=== PATIENT | female | born 1985 | race African-American/Black ===

== ENCOUNTER 2016-10-13 17:51 | Emergency (ER) | payer OTHER ==
[~2016-10-13] VITALS: Ht 170.2 cm; Wt 125.6 kg
[~2016-10-13 17:51] MED LIST: ACET-704 PO; CYCL10TA2 PO; HYDR-971 PO; METH-37 PO; METH4TAB2 PO; NAPR500T8 PO; ONDA4TAB7 PO; TRIA1CAP13 PO
[2016-10-13 18:06] VITALS: BP 178/97
[2016-10-13] MEDS ORDERED: HYDR-971 PO (18:18)
--- NOTE | 2016-10-13 18:18 | PHYS DOC ---
Past Medical History Past Medical History: Hypertension, Other Additional Past Medical Histor: Hemorrhoids,NEUROPATHY,CHRONIC LEFT FOOT PAIN, CRPS Past Surgical History: Tubal ligation Additional Information: quit smoking 2 months ago Alcohol Use: None Drug Use: None Adult General Chief Complaint Chief Complaint: LOWER EXT PAIN [facility] HPI Patient is a 31 year old female with history of hypertension who presents with pain to her left side due to chronic regional pain syndrome. Patient states she normally follows up with her PCP and has an appointment with the doctor on Wednesday next week. She states she ran out of her pain medicines. She states the whether also has changed from warm to cold and this has triggered her pain. She states she has an appointment with the pain clinic in 6 months for her first visit. She has blankets wrapped on her left lower extremity. She states this keeps her warm. She states any time cold hits her leg she develops more pain. PCP Dr. Amber Jon Review of Systems Review of Systems Constitutional: Denies fever or chills [] Eyes: Denies change in visual acuity, redness, or eye pain [] HENT: Denies nasal congestion or sore throat [] Respiratory: Denies cough or shortness of breath [] Cardiovascular: No additional information not addressed in HPI [] GI: Denies abdominal pain, nausea, vomiting, bloody stools or diarrhea [] : Denies dysuria or hematuria [] Musculoskeletal: Left sided pain Integument: Denies rash or skin lesions [] Neurologic: Denies headache, focal weakness or sensory changes [] Endocrine: Denies polyuria or polydipsia [] Current Medications Current Medications Current Medications Medications (Trade) Dose Ordered Sig/[facility] Start Time Stop Time Status Last Admin Dose Admin Dexamethasone Sodium Phosphate (Decadron) 10 mg 1X ONCE 10/13/16 19:00 10/13/16 19:01 Morphine Sulfate 5 mg 1X ONCE 10/13/16 19:00 10/13/16 19:01 Allergies Allergies Allergies Coded Allergies Type Severity Reaction Last Updated Verified No Known Drug Allergies 09/28/13 No Physical Exam Physical Exam Constitutional: Well developed, well nourished, no acute distress, non-toxic appearance. [] HENT: Normocephalic, atraumatic, bilateral external ears normal, oropharynx moist, no oral exudates, nose normal. [] Eyes: PERRLA, EOMI, conjunctiva normal, no discharge. [] Neck: Normal range of motion, no tenderness, supple, no stridor. [] Cardiovascular:Heart rate regular rhythm, no murmur [] Lungs & Thorax: Bilateral breath sounds clear to auscultation [] Abdomen: Bowel sounds normal, soft, no tenderness, no masses, no pulsatile masses. [] Skin: Warm, dry, no erythema, no rash. [] Back: No tenderness, no CVA tenderness. [] Extremities: No tenderness, no cyanosis, no clubbing, ROM intact, no edema. [] Neurologic: Alert and oriented X 3, normal motor function, normal sensory function, no focal deficits noted. [] Psychologic: Affect normal, judgement normal, mood normal. [] Current Patient Data Vital Signs Vital Signs Date Time Temp Pulse Resp B/P Pulse Ox O2 Delivery O2 Flow Rate FiO2 10/13/16 18:06 98.5 100 16 97 Room Air 98.5 EKG EKG [] Radiology/Procedures Radiology/Procedures [] Course & Med Decision Making Course & Med Decision Making Pertinent Labs and Imaging studies reviewed. (See chart for details) Patient is in the ED with chronic regional pain syndrome. We provided her pain clinic for follow-up. We gave her pain management in the ED. She promised to see her doctor on Wednesday as scheduled. Drake Disclaimer Drake Disclaimer This electronic medical record was generated, in whole or in part, using a voice recognition dictation system. Departure Departure Impression: Primary Impression: Chronic pain Disposition: HOME, SELF-CARE Condition: STABLE Referrals: COLE JON MD (PCP) HA FORTUNE MD follow up with your doctor or the pain clinic as soon as possible Patient Instructions: Chronic Back Pain Additional Instructions: Please follow up with your doctor as soon as possible. Make an appointment with the pain clinic as soon as possible for follow up Scripts Hydrocodone/Apap 5-325 ([place] 5-325 Tablet)1 Each Tablet1 Tab PO Q6-8HRS PRN PAIN #16 TAB Prov:FATIMAHOPAL RENO BRIDGET 10/13/16 Problem Qualifiers Primary Impression: Chronic pain Chronic pain type: chronic pain syndrome Qualified Code: G89.4 - Chronic pain syndrome FATIMAHOPAL RENO BRIDGET October 13, 2016 18:18
[2016-10-13] MEDS ORDERED: MORPHINE SULFATE 10 MG/ML VIAL. IM ONE (19:00)
[2016-10-13] MEDS ORDERED: DEXAMETHASONE SOD PHOS 20 MG/5 ML VIAL. IM ONE (19:00)
[2016-10-14] MEDS ORDERED: NAPR500T PO (17:10)
[2016-10-14] MEDS ORDERED: ONDA4TAB10 SL (17:10)
== END 2016-10-13 18:30 | disposition home or self-care (01) ==
LOC: ER 17:51
DX: G89.4 Chronic pain syndrome (principal); I10 Essential (primary) hypertension; G62.9 Polyneuropathy, unspecified; G90.50 Complex regional pain syndrome I, unspecified; Z87.891 Personal history of nicotine dependence
CPT/HCPCS: 96372; 99284; J1100; J2270

== ENCOUNTER 2016-10-14 16:38 | Emergency (ER) | payer OTHER ==
[~2016-10-14] VITALS: Ht 170.2 cm; Wt 125.6 kg
[2016-10-14 16:49] VITALS: BP 173/112
[2016-10-14] MEDS ORDERED: ONDA4TAB10 SL (17:10)
[2016-10-14] MEDS ORDERED: NAPR500T PO (17:10)
[2016-10-14] MEDS ORDERED: KETOROLAC TROMETHAMINE 60 MG/2 ML INJ. IM ONE (17:15)
[2016-10-14] MEDS ORDERED: ONDANSETRON ODT 4 MG TAB.RAPDIS. PO ONE (17:15)
--- NOTE | 2016-10-14 17:31 | PHYS DOC ---
Past Medical History Past Medical History: Hypertension, Other Additional Past Medical Histor: Hemorrhoids,NEUROPATHY,CHRONIC LEFT FOOT PAIN, CRPS Past Surgical History: Tubal ligation Alcohol Use: None Drug Use: None Adult General Chief Complaint Chief Complaint: HEADACHE HPI HPI Patient is a pleasant 31-year-old -[place] female with considerable chronic history of lower back pain, left foot pain, chronic headaches, who presents with the same chronic complaints as she was seen here yesterday for. She has no new complaints today is just worried she can't get over the pain despite being on oral narcotics. This pain has been going on since 2014 she's currently on Cymbalta as well as oral narcotics to treat her pain she has a primary care follow-up visit every 30 days to treat her like symptoms. There is no new trauma her headache is described as throbbing and achy typical for patient with not sudden in onset or worst of life. She denies any new focal neurologic deficits, denies any change in vision denies normal speech. Patient' s foot pain is exact same she was just looking for some narcotics to treat. She admits she last took hydrocodone 6 hours prior to arrival with minimal improvement. She was on tramadol and Tylenol at home but now has been graduated to hydrocodone and has run out of her medications. We discussed at length her usage she's been screened for peripheral circulatory problems as well as gout in the past Review of Systems Review of Systems Constitutional: Denies fever or chills [] Eyes: Denies change in visual acuity, redness, or eye pain [] HENT: Denies nasal congestion or sore throat [] Respiratory: Denies cough or shortness of breath [] Cardiovascular: No additional information not addressed in HPI [] GI: Denies abdominal pain, nausea, vomiting, bloody stools or diarrhea [] : Denies dysuria or hematuria [] Musculoskeletal: Complains of chronic back pain chronic left ankle and foot pain. Integument: Denies rash or skin lesions [] Neurologic: She complains of chronic headache chronic neck pain Endocrine: Denies polyuria or polydipsia [] Family History Family History Noncontributory Current Medications Current Medications Current Medications Medications (Trade) Dose Ordered Sig/[facility] Start Time Stop Time Status Last Admin Dose Admin Ketorolac Tromethamine (Toradol Im) 60 mg 1X ONCE 10/14/16 17:15 10/14/16 17:16 DC 10/14/16 17:06 60 MG Ondansetron HCl (Zofran Odt) 4 mg 1X ONCE 10/14/16 17:15 10/14/16 17:16 DC 10/14/16 17:06 4 MG Allergies Allergies Allergies Coded Allergies Type Severity Reaction Last Updated Verified No Known Drug Allergies 09/28/13 No Physical Exam Physical Exam Constitutional: Well developed, well nourished, patient obviously uncomfortable nondiaphoretic limiting no signs of withdrawal. [] HENT: Normocephalic, atraumatic, bilateral external ears normal, oropharynx moist, no oral exudates, nose normal. [] Eyes: PERRLA, EOMI, conjunctiva normal, no discharge. [] Neck: Normal range of motion, no tenderness, supple, no stridor. [] Cardiovascular: Noted tachycardia no murmurs, rub Lungs & Thorax: Bilateral breath sounds clear to auscultation [] Abdomen: Bowel sounds normal, soft, no tenderness, no masses, no pulsatile masses. [] Skin: Warm, dry, no erythema, no rash. [] Back: No tenderness, no CVA tenderness. 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 Neurologic: Alert and oriented X 3, normal motor function, normal sensory function, no focal deficits noted. [] Psychologic: Affect normal, judgement normal, mood normal. [] Current Patient Data Vital Signs Vital Signs Date Time Temp Pulse Resp B/P Pulse Ox O2 Delivery O2 Flow Rate FiO2 10/14/16 16:49 98.9 119 20 173/112 97 Room Air 98.9 EKG EKG [] Radiology/Procedures Radiology/Procedures [] Course & Med Decision Making Course & Med Decision Making Pertinent Labs and Imaging studies reviewed. (See chart for details) [Patient with chronic head and neck pain chronic back pain chronic ankle pain with nothing new today patient admits she has run out of her narcotic medications for acute treatment. Given that there is nothing new about history we talked about long-term narcotic use and about his dependence on such. Patient will be given Toradol Zofran to help with her symptoms prescribed anti- inflammatories for long-term usage. She is referred back to her primary care doctor for referral to a addiction clinic or possibly some occipital clinic to help her with her long-term opiate use. At this point time patient is not likely to have intracranial hemorrhage or meningitis.] Drake Disclaimer Dragon Disclaimer This electronic medical record was generated, in whole or in part, using a voice recognition dictation system. Departure Departure Impression: Primary Impression: Chronic pain Additional Impression: Chronic foot pain Disposition: HOME, SELF-CARE Condition: STABLE Referrals: OBINNA JON MD (PCP) Patient Instructions: Chronic Pain Management, Chronic Pain Additional Instructions: These follow-up with her primary care doctor for referral for opiate addiction clinic for use of Suboxone may help you improve your long-term satisfaction with pain management. Please return for any new or increasing symptoms. Please return for any question she might have. Please note that this facility may not refill your chronic narcotic medications. I suggest you plan ahead work with your primary care doctor to have a plan in the CHANCE she run medications. Scripts Naproxen (Naprosyn)500 Mg Tablet1 Tab PO BID #14 TAB Ref 2 Prov:MICHELA NICOLE MD 10/14/16 Ondansetron (Zofran Odt)4 Mg Tab.rapdis1 Tab SL Q8HRS #10 TAB Prov:MICHELA NICOLE MD 10/14/16 Problem Qualifiers MICHELA NICOLE MD October 14, 2016 17:31
== END 2016-10-14 17:21 | disposition home or self-care (01) ==
LOC: ER 16:38
DX: G89.29 Other chronic pain (principal); M79.672 Pain in left foot; M54.5 Low back pain; M54.2 Cervicalgia; R51 Headache; I10 Essential (primary) hypertension; Z98.51 Tubal ligation status
CPT/HCPCS: 96372; 99283; J1885; Q0162

== ENCOUNTER 2016-10-20 23:28 | Emergency (ER) | payer OTHER ==
[~2016-10-20] VITALS: Ht 175.3 cm; Wt 125.6 kg
[~2016-10-20 23:28] MED LIST changes: +NAPR500T PO; +ONDA4TAB10 SL
[2016-10-21 00:48] LABS: BASO % 0 % (0-3); EOS % 2 % (0-3); HEMATOCRIT 42.5 % (36.0-47.0); HEMOGLOBIN 14.7 g/dL (12.0-15.5); LYMPH # 3.5 x10^3/uL (1.0-4.8); LYMPH % 25 % (24-48); MEAN CORPUSCULAR HEMOGLOBIN 29 pg (25-35); MEAN CORPUSCULAR HGB CONC 35 g/dL (31-37); MEAN CORPUSCULAR VOLUME 84 fL (79-100); MONO % 8 % (0-9); NEUT % 65 % (31-73); PLATELET COUNT 479 x10^3/uL (140-400); RED BLOOD COUNT 5.05 x10^6/uL (3.50-5.40); WHITE BLOOD COUNT 13.9 x10^3/uL (4.0-11.0)
[2016-10-21 01:01] LABS: CREATININE 1.6 mg/dL (0.6-1.0); GFR 45.5; POTASSIUM 3.9 mmol/L (3.5-5.1)
[2016-10-21 01:07] LABS: ALBUMIN 3.8 g/dL (3.4-5.0); ALBUMIN/GLOBULIN RATIO 0.9 (1.0-1.7); TOTAL BILIRUBIN 0.5 mg/dL (0.2-1.0); TOTAL PROTEIN 8.2 g/dL (6.4-8.2)
[2016-10-21 01:27] LABS: BILIRUBIN,URINE SMALL (NEG); GLUCOSE,URINE NEGATIVE (NEG); NITRITE,URINE NEGATIVE (NEG); PH,URINE 5.5; PROTEIN,URINE >=300 mg/dL (NEG-TRACE)
[2016-10-21] MEDS ORDERED: ONDANSETRON PF 4 MG/2 ML VIAL. IV ONE (01:30)
[2016-10-21] MEDS ORDERED: KETOROLAC 15 MG/ML VIAL. IV ONE (01:30)
[2016-10-21] MEDS ORDERED: IV NORMAL SALINE 1000ML BAG 1,000 ML IV ONE (01:30)
[2016-10-21 01:34] LABS: BACTERIA,URINE FEW /HPF (0-FEW); RBC,URINE 0 /HPF (0-2); SQUAMOUS EPITHELIAL CELL,UR MOD /LPF
[2016-10-21] MEDS ORDERED: ONDA4TAB10 SL (04:31)
--- NOTE | 2016-10-21 04:31 | PHYS DOC ---
Past Medical History Past Medical History: Hypertension, Other Additional Past Medical Histor: Hemorrhoids,NEUROPATHY,CHRONIC LEFT FOOT PAIN, CRPS Past Surgical History: Tubal ligation Alcohol Use: None Drug Use: None Adult General Chief Complaint Chief Complaint: HYPERTENSION HPI HPI Patient is a 31 year old female who presents here today complaining of high blood pressure, headache, nausea vomiting and diarrhea. Patient has a history of hypertension. Patient denies any coronary artery disease, diabetes, CHF, COPD , liver longer kidney problems. Patient reports she smokes. No alcohol or drugs. Patient reports her last drink was around dinnertime tonight when she had wine with her [employer] sandwich. Patient is status post a bilateral tubal ligation and gets a double shot as well secondary to bad cramping. She denies any fevers shakes chills. Patient has a dysuria frequency or urgency. Patient reports her last menstrual period was in early August. Patient reports she's had about 10 loose bowel movements in the last 24 hours. She complains of abdominal cramping. Patient has any nuchal rigidity. Patient has any photophobia. Patient's physical exam the ER was significant for a benign abdominal exam. Patient's abdomen was soft nondistended no rebound or guarding. Patient present with any signs or symptoms of be consistent with acute surgical abdomen. Patient 's HEENT exam was unremarkable. Patient had no nuchal rigidity. No photophobia. No Kernig sign or Brudzinski sign. Patient appears with any signs or symptoms that would be be consistent with her concerning for meningitis. Patient's pupils are equally round and reactive to light. Extraocular motions were intact. Patient did not have any papilledema. Patient's oropharynx is clear. Patient was afebrile. Patient was tachycardic upon presentation appeared dry. Patient have dry mucous membranes. Patient's ER course was significant for tachycardia upon arrival. Patient's heart rate was approximately 110 to 1:15. Patient was afebrile with a temperature of 99.2 that was checked multiple times by myself in the ED. Patient 's labs were all within normal limits. Patient was given Dilaudid, Zofran, Toradol, IV fluids in the ER and she feels 100% improved. Patient reports that she feels very to go home at this time. #1 headache likely secondary to dehydration. Patient is doing well at this time. Patient reports her headache is significantly improved and reports that it only hurts at this time when she touches her scalp but otherwise she has no pain in her head. #2. Nausea vomiting diarrhea. Patient appears dehydrated. Patient patient reports multiple episodes of diarrhea today. Patient reports she did eat a [employer] sandwich and had some wine with dinner. Likely viral illness. Patient is doing well. Patient feels much improved after the IV fluids. Review of Systems Review of Systems Constitutional: Denies fever or chills [] Eyes: Denies change in visual acuity, redness, or eye pain [] HENT: Denies nasal congestion or sore throat [] All other review systems are negative except as documented in history of present illness portion. Current Medications Current Medications Current Medications Medications (Trade) Dose Ordered Sig/[facility] Start Time Stop Time Status Last Admin Dose Admin Ketorolac Tromethamine (Toradol) 30 mg 1X ONCE 10/21/16 01:30 10/21/16 01:31 DC 10/21/16 01:41 30 MG Ondansetron HCl (Zofran) 4 mg 1X ONCE 10/21/16 01:30 10/21/16 01:31 DC 10/21/16 01:41 4 MG Sodium Chloride 1,000 ml @ 1,000 mls/hr 1X ONCE 10/21/16 01:30 10/21/16 02:29 DC 10/21/16 01:46 1,000 MLS/HR Allergies Allergies Allergies Coded Allergies Type Severity Reaction Last Updated Verified No Known Drug Allergies 09/28/13 No Physical Exam Physical Exam Constitutional: Well developed, well nourished, no acute distress, non-toxic appearance. [] HENT: Normocephalic, atraumatic, bilateral external ears normal, oropharynx moist, no oral exudates, nose normal. [] Eyes: PERRLA, EOMI, conjunctiva normal, no discharge. [] Neck: Normal range of motion, no tenderness, supple, no stridor. [] Cardiovascular:Heart rate regular rhythm, no murmur [] Lungs & Thorax: Bilateral breath sounds clear to auscultation [] Abdomen: Bowel sounds normal, soft, no tenderness, no masses, no pulsatile masses. [] Skin: Warm, dry, no erythema, no rash. [] Back: No tenderness, no CVA tenderness. [] Extremities: No tenderness, no cyanosis, no clubbing, ROM intact, no edema. [] Neurologic: Alert and oriented X 3, normal motor function, normal sensory function, no focal deficits noted. [] Psychologic: Affect normal, judgement normal, mood normal. [] Current Patient Data Vital Signs Vital Signs Date Time Temp Pulse Resp B/P (MAP) Pulse Ox O2 Delivery O2 Flow Rate FiO2 10/20/16 23:37 113 18 108/63 (78) 97 Room Air Lab Values Laboratory Tests Test 10/20/16 00:38 10/21/16 00:38 White Blood Count 13.9 x10^3/uL (4.0-11.0) H Red Blood Count 5.05 x10^6/uL (3.50-5.40) Hemoglobin 14.7 g/dL (12.0-15.5) Hematocrit 42.5 % (36.0-47.0) Mean Corpuscular Volume 84 fL (79-100) Mean Corpuscular Hemoglobin 29 pg (25-35) Mean Corpuscular Hemoglobin Concent 35 g/dL (31-37) Red Cell Distribution Width 15.0 % (11.5-14.5) H Platelet Count 479 x10^3/uL (140-400) H Neutrophils (%) (Auto) 65 % (31-73) Lymphocytes (%) (Auto) 25 % (24-48) Monocytes (%) (Auto) 8 % (0-9) Eosinophils (%) (Auto) 2 % (0-3) Basophils (%) (Auto) 0 % (0-3) Neutrophils # (Auto) 9.0 x10^3uL (1.8-7.7) H Lymphocytes # (Auto) 3.5 x10^3/uL (1.0-4.8) Monocytes # (Auto) 1.0 x10^3/uL (0.0-1.1) Eosinophils # (Auto) 0.3 x10^3/uL (0.0-0.7) Basophils # (Auto) 0.0 x10^3/uL (0.0-0.2) Sodium Level 137 mmol/L (136-145) Potassium Level 3.9 mmol/L (3.5-5.1) Chloride Level 100 mmol/L (98-107) Carbon Dioxide Level 26 mmol/L (21-32) Anion Gap 11 (6-14) Blood Urea Nitrogen 16 mg/dL (7-20) Creatinine 1.6 mg/dL (0.6-1.0) H Estimated GFR (Cockcroft-Gault) 45.5 BUN/Creatinine Ratio 10 (6-20) Glucose Level 153 mg/dL (70-99) H Calcium Level 10.0 mg/dL (8.5-10.1) Total Bilirubin 0.5 mg/dL (0.2-1.0) Aspartate Amino Transferase (AST) 93 U/L (15-37) H Alanine Aminotransferase (ALT) 63 U/L (14-59) H Alkaline Phosphatase 59 U/L (46-116) Troponin I Quantitative < 0.017 ng/mL (0.000-0.055) Total Protein 8.2 g/dL (6.4-8.2) Albumin 3.8 g/dL (3.4-5.0) Albumin/Globulin Ratio 0.9 (1.0-1.7) L Urine Collection Type Unknown Urine Color Trice Urine Clarity Turbid Urine pH 5.5 Urine Specific [place] 1.020 Urine Protein >=300 mg/dL (NEG-TRACE) Urine Glucose (UA) Negative mg/dL (NEG) Urine Ketones (Stick) Trace mg/dL (NEG) Urine Blood Negative (NEG) Urine Nitrite Negative (NEG) Urine Bilirubin Small (NEG) Urine Urobilinogen Dipstick 1.0 mg/dL (0.2 mg/dL) Urine Leukocyte Esterase Trace (NEG) Urine RBC 0 /HPF (0-2) Urine WBC 1-4 /HPF (0-4) Urine Squamous Epithelial Cells Mod /LPF Urine Amorphous Sediment Present /HPF Urine Bacteria Few /HPF (0-FEW) Urine Granular Casts Occasional /HPF Urine Mucus Marked /LPF Laboratory Tests 10/20/16 00:38 Laboratory Tests 10/20/16 00:38 EKG EKG [] Radiology/Procedures Radiology/Procedures [] Course & Med Decision Making Course & Med Decision Making Pertinent Labs and Imaging studies reviewed. (See chart for details) [] Dragon Disclaimer Dragon Disclaimer This electronic medical record was generated, in whole or in part, using a voice recognition dictation system. Departure Departure Impression: Primary Impression: Nausea vomiting and diarrhea Additional Impressions: Dehydration Headache Viral illness Disposition: HOME, SELF-CARE Condition: IMPROVED Referrals: OBINNA JON MD (PCP) Patient Instructions: Dehydration, Adult, Diarrhea, Nausea and Vomiting Scripts Ondansetron (ZOFRAN ODT) 4 Mg Tab.rapdis 1 TAB SL Q6HRS Y for NAUSEA, #12 TAB Prov: SHERMAN FINK MD 10/21/16 Problem Qualifiers SHERMAN FINK MD October 21, 2016 04:31
[2016-10-21 05:06] VITALS: BP 113/60
--- NOTE | 2016-10-21 07:51 | EKG ---
[facility] [address] [place] [address] Test Date: 2016-10-21 Test Time: 00:37:00 Pat Name: YOLANDA CARVAJAL Department: Room: Gender: F [employer]: : 1985 Requested By: SHERMAN FINK Order Number: [id number] Reading MD: Rigo Quinonez Measurements Intervals [place] Rate: 114 P: 67 NE: 120 QRS: 70 QRSD: 74 T: -22 QT: 322 QTc: 447 Interpretive Statements SINUS TACHYCARDIA Electronically Signed On 10-26-2016 9:14:45 CDT by Rigo Quinonez
== END 2016-10-21 05:07 | disposition home or self-care (01) ==
LOC: ER 23:28
DX: R11.2 Nausea with vomiting, unspecified (principal); R19.7 Diarrhea, unspecified; E86.0 Dehydration; R51 Headache; B34.9 Viral infection, unspecified; R10.9 Unspecified abdominal pain; R00.0 Tachycardia, unspecified; G62.9 Polyneuropathy, unspecified; I10 Essential (primary) hypertension; G89.29 Other chronic pain; G90.50 Complex regional pain syndrome I, unspecified; Z98.51 Tubal ligation status
CPT/HCPCS: 36415; 80053; 81001; 84484; 85027; 87086; 93005; 96361; 96374; 96375; 99285; J1885; J2405; J7030

== ENCOUNTER 2017-04-11 11:19 | Emergency (ER) | payer OTHER ==
[2017-04-11 12:16] VITALS: BP 138/82
[2017-04-11] MEDS ORDERED: DEXAMETHASONE SOD PHOS 4 MG/ML VIAL IM ONE (12:30)
[2017-04-11] MEDS ORDERED: ONDANSETRON ODT 4 MG TAB.RAPDIS. PO ONE (12:30)
[2017-04-11] MEDS ORDERED: KETOROLAC 60 MG/2 ML INJ. IM ONE (12:30)
--- NOTE | 2017-04-11 12:32 | PHYS DOC ---
Past Medical History Past Medical History: Hypertension, Other Additional Past Medical Histor: Hemorrhoids,NEUROPATHY,CHRONIC LEFT FOOT PAIN, CRPS Past Surgical History: Tubal ligation Alcohol Use: None Drug Use: None Adult General Chief Complaint Chief Complaint: PAIN CONTROL HPI HPI Patient is a 31 year old female with a history of CRPS presents to the ED complaining of left foot pain x 1 day. States same chronic pain as previous exacerbations. States she took hydrocodone at home. Requesting anti- inflammatory shot that she has taken in the past which helped. Describes the pain as sharp. Rates the pain as 8 out of 10. She denies any new focal neurologic deficits, denies any change in vision, denies abnormal speech. Review of Systems Review of Systems Constitutional: Denies fever or chills [] Eyes: Denies change in visual acuity, redness, or eye pain [] HENT: Denies nasal congestion or sore throat [] Respiratory: Denies cough or shortness of breath [] Cardiovascular: No additional information not addressed in HPI [] GI: Denies abdominal pain, nausea, vomiting, bloody stools or diarrhea [] : Denies dysuria or hematuria [] Musculoskeletal: Denies back pain. Complains of left leg and ankle pain. [] Integument: Denies rash or skin lesions [] Neurologic: Denies headache, focal weakness or sensory changes [] Endocrine: Denies polyuria or polydipsia [] Current Medications Current Medications Current Medications Medications (Trade) Dose Ordered Sig/[facility] Start Time Stop Time Status Last Admin Dose Admin Dexamethasone Sodium Phosphate (Decadron) 10 mg 1X ONCE 04/11/17 12:30 04/11/17 12:31 DC 04/11/17 12:43 10 MG Ketorolac Tromethamine (Toradol Im) 60 mg 1X ONCE 04/11/17 12:30 04/11/17 12:31 DC 04/11/17 12:43 60 MG Ondansetron HCl (Zofran Odt) 4 mg 1X ONCE 04/11/17 12:30 04/11/17 12:31 DC 04/11/17 12:42 4 MG Allergies Allergies Allergies Coded Allergies Type Severity Reaction Last Updated Verified No Known Drug Allergies 09/28/13 No Physical Exam Physical Exam Constitutional: Well developed, well nourished, no acute distress, non-toxic appearance. [] HENT: Normocephalic, atraumatic, bilateral external ears normal, oropharynx moist, no oral exudates, nose normal. [] Eyes: PERRLA, EOMI, conjunctiva normal, no discharge. [] Neck: Normal range of motion, no tenderness, supple, no stridor. [] Cardiovascular:Heart rate regular rhythm, no murmur [] Lungs & Thorax: Bilateral breath sounds clear to auscultation [] Abdomen: Bowel sounds normal, soft, no tenderness, no masses, no pulsatile masses. [] Skin: Warm, dry, no erythema or rash. [] Back: No tenderness, no CVA tenderness. [] Extremities: NO TENDERNESS OR REPRODUCIBLE PAIN. NV INTACT., no cyanosis, no clubbing, ROM intact, no edema. [] Neurologic: Alert and oriented X 3, normal motor function, normal sensory function, no focal deficits noted. [] Psychologic: Affect normal, judgement normal, mood normal. [] Current Patient Data Vital Signs Vital Signs Date Time Temp Pulse Resp B/P (MAP) Pulse Ox O2 Delivery O2 Flow Rate FiO2 04/11/17 12:16 98.0 98 16 98 Room Air 98.0 EKG EKG [] Radiology/Procedures Radiology/Procedures [] Course & Med Decision Making Course & Med Decision Making Pertinent Labs and Imaging studies reviewed. (See chart for details) []No bony tenderness or injury. No x-ray warranted. Patient given Toradol and Decadron in ED. Patient's pain improved. Vital stable, no acute distress. Discussed follow-up with specialist and chronic pain early this week. Discussed reasons to return to the ED. Patient understands and agrees with plan. Family at bedside. Dragon Disclaimer Dragon Disclaimer This electronic medical record was generated, in whole or in part, using a voice recognition dictation system. Departure Departure Impression: Primary Impression: Chronic pain Disposition: 01 HOME, SELF-CARE Condition: IMPROVED Referrals: OBINNA JON MD (PCP) Patient Instructions: Chronic Pain, Chronic Pain Management ROSARIO BERNAL Apr 11, 2017 12:32
== END 2017-04-11 12:54 | disposition home or self-care (01) ==
LOC: ER 11:19
DX: G89.29 Other chronic pain (principal); M25.572 Pain in left ankle and joints of left foot; I10 Essential (primary) hypertension; G62.9 Polyneuropathy, unspecified
CPT/HCPCS: 96372; 99284; J1100; J1885; Q0162

== ENCOUNTER 2017-07-16 15:42 | Emergency (ER) | payer OTHER ==
[2017-07-16 16:53] LABS: URINE HCG POC HCG NEGATIVE (Negative)
[2017-07-16 16:54] LABS: BILIRUBIN,URINE SMALL (NEG); CLARITY,URINE CLEAR; COLOR,URINE AMBER; GLUCOSE,URINE NEGATIVE (NEG); NITRITE,URINE NEGATIVE (NEG); PROTEIN,URINE 100 mg/dL (NEG-TRACE)
[2017-07-16 17:01] LABS: ADD MAN DIFF? NO
[2017-07-16] MEDS: IV NORMAL SALINE 1000ML BAG 1,000 ML IV ×2 (17:01)
[2017-07-16] MEDS: PANTOPRAZOLE IV PUSH 40 MG VIAL. IVP ×2 (17:02)
[2017-07-16] MEDS: ONDANSETRON PF 4 MG/2 ML VIAL. IV ×2 (17:02)
[2017-07-16] MEDS: LIDO:MAALOX:DONNATAL 1:1:1 15 ML SINGLE DOSE SWSW ×2 (17:02)
[2017-07-16] MEDS: fentaNYL PF VIAL 100 MCG/2 ML VIAL IV ×2 (17:02)
[2017-07-16 17:07] LABS: BASO # 0.1 x10^3/uL (0.0-0.2); BASO % 1 % (0-3); EOS # 0.4 x10^3/uL (0.0-0.7); EOS % 4 % (0-3); HEMATOCRIT 43.2 % (36.0-47.0); HEMOGLOBIN 14.6 g/dL (12.0-15.5); LYMPH # 4.5 x10^3/uL (1.0-4.8); LYMPH % 42 % (24-48); MEAN CORPUSCULAR HEMOGLOBIN 30 pg (25-35); MEAN CORPUSCULAR HGB CONC 34 g/dL (31-37); MEAN CORPUSCULAR VOLUME 90 fL (79-100); MONO # 0.8 x10^3/uL (0.0-1.1); MONO % 8 % (0-9); NEUT # 4.9 x10^3uL (1.8-7.7); NEUT % 46 % (31-73); PLATELET COUNT 434 x10^3/uL (140-400); RED BLOOD COUNT 4.79 x10^6/uL (3.50-5.40); RED CELL DISTRIBUTION WIDTH 13.6 % (11.5-14.5); WHITE BLOOD COUNT 10.6 x10^3/uL (4.0-11.0)
[2017-07-16] MEDS ORDERED: CONTRAST GIVEN MC ×2 (17:15)
[2017-07-16 17:26] LABS: BACTERIA,URINE 0 /HPF (0-FEW); RBC,URINE 0 /HPF (0-2); SQUAMOUS EPITHELIAL CELL,UR MOD /LPF; WBC,URINE OCC /HPF (0-4)
[2017-07-16 17:33] LABS: ANION GAP 8 (6-14); BLOOD UREA NITROGEN 10 mg/dL (7-20); BUN/CREATININE RATIO 14 (6-20); CARBON DIOXIDE 31 mmol/L (21-32); CHLORIDE 99 mmol/L (98-107); CREATININE 0.7 mg/dL (0.6-1.0); GFR 117.3; GLUCOSE 103 mg/dL (70-99); SODIUM 138 mmol/L (136-145)
[2017-07-16 17:40] LABS: ALBUMIN 3.8 g/dL (3.4-5.0); ALBUMIN/GLOBULIN RATIO 0.9 (1.0-1.7); ALK PHOS 90 U/L (46-116); ALT (SGPT) 130 U/L (14-59); AST (SGOT) 184 U/L (15-37); LIPASE 124 U/L (73-393); MAGNESIUM 1.9 mg/dL (1.8-2.4); TOTAL BILIRUBIN 0.5 mg/dL (0.2-1.0); TOTAL PROTEIN 8.1 g/dL (6.4-8.2)
[2017-07-16] MEDS: IOHEXOL 300 MG/ML 100ML VIAL. IV ×2 (19:39)
[2017-07-16] MEDS: HYDROmorphone 2 MG/ML VIAL IV ×2 (19:49)
[2017-07-16] MEDS: oxyCODONE/APAP 5/325 1 TAB TABLET PO ×2 (20:20)
[2017-07-16] MEDS: FAMOTIDINE 20 MG TABLET. PO ×2 (20:22)
== END 2017-07-16 20:39 | disposition home or self-care (01) ==
LOC: ER 15:42
DX: R10.10 Upper abdominal pain, unspecified (principal); R74.0 Nonspecific elevation of levels of transaminase and lactic acid dehydrogenase [LDH]; I10 Essential (primary) hypertension; G62.9 Polyneuropathy, unspecified; F12.10 Cannabis abuse, uncomplicated; F17.200 Nicotine dependence, unspecified, uncomplicated; Z98.51 Tubal ligation status
CPT/HCPCS: 36415; 74177; 80053; 81001; 81025; 83690; 83735; 85025; 96361; 96374; 96375; 99285-25; C9113; J1170; J2405; J3010; J7030; Q9967

== ENCOUNTER 2017-07-20 09:30 | Inpatient (IN) | payer OTHER ==
[2017-07-20 10:01] LABS: URINE HCG POC HCG NEGATIVE (Negative)
[2017-07-20 10:10] LABS: BILIRUBIN,URINE NEGATIVE (NEG); CLARITY,URINE CLEAR; COLOR,URINE YELLOW; GLUCOSE,URINE NEGATIVE (NEG); NITRITE,URINE NEGATIVE (NEG); PROTEIN,URINE 100 mg/dL (NEG-TRACE); UROBILINOGEN,URINE 0.2 mg/dL (0.2 mg/dL)
[2017-07-20 10:23] LABS: BACTERIA,URINE MANY /HPF (0-FEW); SQUAMOUS EPITHELIAL CELL,UR MANY /LPF
[2017-07-20 10:24] LABS: RBC,URINE OCC /HPF (0-2)
[2017-07-20 10:28] LABS: ADD MAN DIFF? NO
[2017-07-20 10:31] LABS: BARBITURATES NEG (NEG); BASO # 0.1 x10^3/uL (0.0-0.2); BASO % 1 % (0-3); BENZODIAZEPINES NEG (NEG); CANNABINOIDS POS (NEG); COCAINE NEG (NEG); EOS # 0.3 x10^3/uL (0.0-0.7); EOS % 3 % (0-3); HEMATOCRIT 45.8 % (36.0-47.0); HEMOGLOBIN 15.3 g/dL (12.0-15.5); LYMPH # 3.3 x10^3/uL (1.0-4.8); LYMPH % 27 % (24-48); MEAN CORPUSCULAR HEMOGLOBIN 30 pg (25-35); MEAN CORPUSCULAR HGB CONC 34 g/dL (31-37); MEAN CORPUSCULAR VOLUME 89 fL (79-100); METHADONE NEG (NEG); MONO # 0.9 x10^3/uL (0.0-1.1); MONO % 7 % (0-9); NEUT # 7.7 x10^3uL (1.8-7.7); NEUT % 63 % (31-73); OPIATES POS (NEG); PHENCYCLIDINE NEG (NEG); PLATELET COUNT 447 x10^3/uL (140-400); RED BLOOD COUNT 5.17 x10^6/uL (3.50-5.40); RED CELL DISTRIBUTION WIDTH 13.6 % (11.5-14.5); WHITE BLOOD COUNT 12.3 x10^3/uL (4.0-11.0)
[2017-07-20 10:35] LABS: AMPHETAMINE/METHAMPHETAMINE NEG (NEG); ETHANOL, URINE NEG (NEG)
[2017-07-20 10:40] LABS: PARTIAL THROMBOPLASTIN TIME 30 SEC (24-38); PROTHROMBIN TIME PATIENT 12.7 SEC (11.7-14.0)
[2017-07-20 10:42] LABS: ANION GAP 9 (6-14); BLOOD UREA NITROGEN 12 mg/dL (7-20); CALCIUM 9.7 mg/dL (8.5-10.1); CARBON DIOXIDE 28 mmol/L (21-32); CHLORIDE 97 mmol/L (98-107); CREATININE 0.7 mg/dL (0.6-1.0); GFR 117.3; GLUCOSE 125 mg/dL (70-99); POTASSIUM 4.2 mmol/L (3.5-5.1); SODIUM 134 mmol/L (136-145)
[2017-07-20 10:48] LABS: ALBUMIN 3.9 g/dL (3.4-5.0); ALK PHOS 80 U/L (46-116); ALT (SGPT) 99 U/L (14-59); AST (SGOT) 124 U/L (15-37); DIRECT BILIRUBIN 0.1 mg/dL (0.0-0.2); LIPASE 105 U/L (73-393); TOTAL BILIRUBIN 0.6 mg/dL (0.2-1.0); TOTAL PROTEIN 8.4 g/dL (6.4-8.2)
[2017-07-20 10:55] LABS: CKMB INDEX 0.4 % (0-4); CKMB MASS 0.7 ng/mL (0.0-3.6); CREATINE KINASE 183 U/L (26-192)
[2017-07-20] MEDS: IV NORMAL SALINE 1000ML BAG 1,000 ML IV (11:53)
[2017-07-20] MEDS: MORPHINE SULFATE 4 MG/ML DISP.SYRIN. IV/SQ ×3 (11:54→14:41)
[2017-07-20] MEDS: ONDANSETRON PF 4 MG/2 ML VIAL. IV (11:54)
[2017-07-20 12:25] LABS: LACTIC ACID 0.7 mmol/L (0.4-2.0)
[2017-07-20] MEDS: LIDO:MAALOX:DONNATAL 1:1:1 15 ML SINGLE DOSE SWSW (12:26)
[2017-07-20 12:39] LABS: TROPONINI < 0.017 ng/mL (0.000-0.055)
[2017-07-20] MEDS ORDERED: MORPHINE SULFATE 2 MG/ML DISP.SYRIN. IV (14:45)
[2017-07-20] MEDS ORDERED: ONDANSETRON PF 4 MG/2 ML VIAL. IV ×2 (14:45→15:45)
[2017-07-20] MEDS ORDERED: ACETAMINOPHEN/CODEINE 300/30MG TABLET. PO (15:45)
[2017-07-20] MEDS ORDERED: PANTOPRAZOLE IV PUSH 40 MG VIAL. IVP (16:00)
[2017-07-20] MEDS: fentaNYL PF VIAL 100 MCG/2 ML VIAL IV ×3 (17:02→23:09)
[2017-07-20] MEDS: METHOCARBAMOL 500 MG TABLET PO ×2 (17:27→21:28)
[2017-07-20] MEDS: IV 1/2 NORMAL SALINE 1,000 ML IV (17:29)
[2017-07-20] MEDS: tiZANidine 4 MG TABLET. PO (18:39)
[2017-07-20] MEDS: oxyCODONE/APAP 5/325 1 TAB TABLET PO ×2 (18:40→23:08)
[2017-07-20] MEDS: HYDROcodone/APAP 5/325MG 1 TAB TABLET PO (21:28)
[2017-07-20] MEDS: NAPROXEN 500 MG TABLET PO (21:28)
[2017-07-20] MEDS: ZOLPIDEM 5 MG TABLET. PO (21:28)
[2017-07-20 21:38] LABS: TROPONINI < 0.017 ng/mL (0.000-0.055)
[2017-07-21] MEDS: fentaNYL PF VIAL 100 MCG/2 ML VIAL IV ×4 (01:59→10:43)
[2017-07-21 03:00] LABS: ADD MAN DIFF? NO
[2017-07-21 03:01] LABS: BASO % 0 % (0-3); EOS # 0.3 x10^3/uL (0.0-0.7); EOS % 3 % (0-3); HEMATOCRIT 44.3 % (36.0-47.0); LYMPH # 3.1 x10^3/uL (1.0-4.8); LYMPH % 29 % (24-48); MEAN CORPUSCULAR HEMOGLOBIN 30 pg (25-35); MEAN CORPUSCULAR HGB CONC 34 g/dL (31-37); MEAN CORPUSCULAR VOLUME 89 fL (79-100); MONO % 9 % (0-9); NEUT # 6.5 x10^3uL (1.8-7.7); NEUT % 60 % (31-73); PLATELET COUNT 426 x10^3/uL (140-400); RED BLOOD COUNT 4.95 x10^6/uL (3.50-5.40); RED CELL DISTRIBUTION WIDTH 13.8 % (11.5-14.5)
[2017-07-21 03:34] LABS: ANION GAP 9 (6-14); BLOOD UREA NITROGEN 10 mg/dL (7-20); CALCIUM 9.7 mg/dL (8.5-10.1); CARBON DIOXIDE 28 mmol/L (21-32); CHLORIDE 99 mmol/L (98-107); CREATININE 0.8 mg/dL (0.6-1.0); GFR 100.6; GLUCOSE 94 mg/dL (70-99); POTASSIUM 3.9 mmol/L (3.5-5.1); SODIUM 136 mmol/L (136-145)
[2017-07-21 03:46] LABS: TROPONINI < 0.017 ng/mL (0.000-0.055)
[2017-07-21] MEDS: IV 1/2 NORMAL SALINE 1,000 ML IV ×2 (05:20→18:40)
[2017-07-21] MEDS: PANTOPRAZOLE 40 MG TABLET.DR. PO ×2 (07:30→17:40)
[2017-07-21 10:23] LABS: HCV ANTIBODY <0.1 s/co ratio (0.0-0.9); HEP A IGM ABDY Indeterminate (Negative); HEP B SURFACE AG Negative (Negative)
[2017-07-21 11:33] LABS: ALK PHOS 84 U/L (46-116); ALT (SGPT) 122 U/L (14-59); AST (SGOT) 249 U/L (15-37); DIRECT BILIRUBIN 0.1 mg/dL (0.0-0.2); TOTAL BILIRUBIN 0.6 mg/dL (0.2-1.0); TOTAL PROTEIN 7.7 g/dL (6.4-8.2)
[2017-07-21] MEDS: SINCALIDE IV (12:38)
[2017-07-21] MEDS: NORMAL SALINE IV (12:38)
[2017-07-21] MEDS: METHOCARBAMOL 500 MG TABLET PO ×4 (13:00→21:40)
[2017-07-21] MEDS: HYDROcodone/APAP 5/325MG 1 TAB TABLET PO ×2 (13:20→19:47)
[2017-07-21] MEDS: DULoxetine HCL 30 MG CAPSULE.DR PO (13:31)
[2017-07-21] MEDS: NAPROXEN 500 MG TABLET PO ×2 (13:32→21:40)
[2017-07-21] MEDS: PROPRANOLOL 10 MG TABLET. PO (13:32)
[2017-07-21] MEDS: NICOTINE 21MG PATCH. TD (13:40)
[2017-07-21] MEDS: oxyCODONE/APAP 5/325 1 TAB TABLET PO ×2 (17:39→21:40)
[2017-07-21] MEDS: tiZANidine 4 MG TABLET. PO (17:39)
[2017-07-21] MEDS: ZOLPIDEM 5 MG TABLET. PO (21:40)
[2017-07-22 05:17] LABS: ADD MAN DIFF? NO
[2017-07-22 05:28] LABS: BASO % 1 % (0-3); EOS # 0.3 x10^3/uL (0.0-0.7); EOS % 3 % (0-3); HEMATOCRIT 46.5 % (36.0-47.0); LYMPH # 3.2 x10^3/uL (1.0-4.8); LYMPH % 37 % (24-48); MEAN CORPUSCULAR HEMOGLOBIN 29 pg (25-35); MEAN CORPUSCULAR HGB CONC 32 g/dL (31-37); MEAN CORPUSCULAR VOLUME 90 fL (79-100); MONO # 0.8 x10^3/uL (0.0-1.1); MONO % 10 % (0-9); NEUT # 4.2 x10^3uL (1.8-7.7); NEUT % 49 % (31-73); PLATELET COUNT 400 x10^3/uL (140-400); RED BLOOD COUNT 5.15 x10^6/uL (3.50-5.40); RED CELL DISTRIBUTION WIDTH 13.8 % (11.5-14.5); WHITE BLOOD COUNT 8.6 x10^3/uL (4.0-11.0)
[2017-07-22] MEDS: HYDROcodone/APAP 5/325MG 1 TAB TABLET PO ×4 (05:35→17:11)
[2017-07-22] MEDS: PANTOPRAZOLE 40 MG TABLET.DR. PO (05:35)
[2017-07-22 05:59] LABS: ALBUMIN 3.8 g/dL (3.4-5.0); ALK PHOS 88 U/L (46-116); ALT (SGPT) 139 U/L (14-59); ANION GAP 8 (6-14); AST (SGOT) 202 U/L (15-37); BLOOD UREA NITROGEN 11 mg/dL (7-20); BUN/CREATININE RATIO 14 (6-20); CALCIUM 9.1 mg/dL (8.5-10.1); CARBON DIOXIDE 30 mmol/L (21-32); CHLORIDE 99 mmol/L (98-107); CREATININE 0.8 mg/dL (0.6-1.0); GFR 100.6; GLUCOSE 141 mg/dL (70-99); SODIUM 137 mmol/L (136-145); TOTAL BILIRUBIN 0.5 mg/dL (0.2-1.0); TOTAL PROTEIN 7.8 g/dL (6.4-8.2)
[2017-07-22] MEDS: METHOCARBAMOL 500 MG TABLET PO ×4 (09:00→22:09)
[2017-07-22] MEDS: PROPRANOLOL 10 MG TABLET. PO (09:00)
[2017-07-22] MEDS: fentaNYL PF VIAL 100 MCG/2 ML VIAL IV (09:28)
[2017-07-22] MEDS: ONDANSETRON ODT 4 MG TAB.RAPDIS. PO (09:28)
[2017-07-22] MEDS: tiZANidine 4 MG TABLET. PO ×2 (11:40→17:11)
[2017-07-22] MEDS: DULoxetine HCL 30 MG CAPSULE.DR PO (11:40)
[2017-07-22] MEDS: IV 1/2 NORMAL SALINE 1,000 ML IV ×2 (12:00→22:23)
[2017-07-22 13:23] LABS: HEP A TOTAL ABDY Negative (Negative)
[2017-07-22 13:23] LABS: HEP A IGM ABDY Indeterminate (Negative)
[2017-07-22] MEDS: ZOLPIDEM 5 MG TABLET. PO (22:27)
[2017-07-23] MEDS: oxyCODONE/APAP 10/325 1 TAB TABLET PO ×3 (00:21→21:11)
[2017-07-23] MEDS: fentaNYL PF VIAL 100 MCG/2 ML VIAL IV ×6 (05:22→15:39)
[2017-07-23] MEDS: ONDANSETRON ODT 4 MG TAB.RAPDIS. PO (05:25)
[2017-07-23] MEDS: IV RINGERS,LACTATED 1000ML 1,000 ML IV (07:00)
[2017-07-23] MEDS ORDERED: fentaNYL PF VIAL 100 MCG/2 ML VIAL IV (07:00)
[2017-07-23] MEDS: DULoxetine HCL 30 MG CAPSULE.DR PO (08:04)
[2017-07-23] MEDS: METHOCARBAMOL 500 MG TABLET PO ×4 (08:04→21:10)
[2017-07-23] MEDS: PROPRANOLOL 10 MG TABLET. PO (08:43)
[2017-07-23] MEDS: PANTOPRAZOLE IV PUSH 40 MG VIAL. IVP (08:44)
[2017-07-23] MEDS: IV 1/2 NORMAL SALINE 1,000 ML IV ×2 (10:40→22:19)
[2017-07-23] MEDS: NICOTINE 21MG PATCH. TD (10:54)
[2017-07-23] MEDS: HYDROmorphone 2 MG/ML VIAL IV ×5 (10:56→16:36)
[2017-07-23] MEDS ORDERED: ALBUTEROL SULFATE 2.5 MG/3 ML NEBU. NEB (12:30)
[2017-07-23] MEDS ORDERED: fentaNYL PF VIAL 100 MCG/2 ML VIAL ×3 (12:48→15:20)
[2017-07-23] MEDS ORDERED: LIDOCAINE 1% PF 5 ML VIAL. (12:48)
[2017-07-23] MEDS ORDERED: PROPOFOL 20 ML IV (12:48)
[2017-07-23] MEDS ORDERED: ROCURONIUM 50 MG/5 ML VIAL. (12:48)
[2017-07-23] MEDS ORDERED: ONDANSETRON PF 4 MG/2 ML VIAL. (13:51)
[2017-07-23] MEDS ORDERED: DESFLURANE 31 TO 60 MINUTES IH (13:51)
[2017-07-23] MEDS ORDERED: DEXAMETHASONE SOD PHOS 20 MG/5 ML VIAL. (13:51)
[2017-07-23] MEDS: ceFAZolin SODIUM 3 GM in IV DEXTROSE 5% 100 ML IV (13:53)
[2017-07-23] MEDS: BUPIVAC MPF-EPI 0.5%-1:200000 30 ML VIAL. INJ (13:57)
[2017-07-23] MEDS: IOHEXOL 300 MG/ML 100ML VIAL. (13:57)
[2017-07-23] MEDS ORDERED: GLYCOPYRROLATE 1 MG/5 ML VIAL. (13:59)
[2017-07-23] MEDS ORDERED: MORPHINE SULFATE 2 MG/ML DISP.SYRIN. (15:20)
[2017-07-23] MEDS: MORPHINE SULFATE 2 MG/ML DISP.SYRIN. IV ×2 (15:26→15:39)
[2017-07-23] MEDS ORDERED: HYDROmorphone 2 MG/ML VIAL (15:49)
[2017-07-23] MEDS ORDERED: PROCHLORPERAZINE 10 MG/2 ML VIAL. (15:58)
[2017-07-23] MEDS ORDERED: KETOROLAC 30 MG/ML INJ. (15:58)
[2017-07-23] MEDS: PROCHLORPERAZINE 10 MG/2 ML VIAL. IV ×2 (16:04→16:19)
[2017-07-23] MEDS: LIDOCAINE 1% PF 2 ML VIAL. ID (16:06)
[2017-07-23] MEDS: KETOROLAC 30 MG/ML INJ. IV (16:10)
[2017-07-23] MEDS: tiZANidine 4 MG TABLET. PO (21:09)
[2017-07-23] MEDS: ZOLPIDEM 5 MG TABLET. PO (21:11)
[2017-07-24] MEDS: oxyCODONE/APAP 10/325 1 TAB TABLET PO ×5 (02:25→20:41)
[2017-07-24] MEDS: ONDANSETRON PF 4 MG/2 ML VIAL. IV (02:40)
[2017-07-24 05:33] LABS: ADD MAN DIFF? NO
[2017-07-24 06:21] LABS: BASO % 0 % (0-3); EOS % 0 % (0-3); HEMATOCRIT 46.5 % (36.0-47.0); HEMOGLOBIN 15.6 g/dL (12.0-15.5); LYMPH # 2.7 x10^3/uL (1.0-4.8); LYMPH % 17 % (24-48); MEAN CORPUSCULAR HEMOGLOBIN 30 pg (25-35); MEAN CORPUSCULAR HGB CONC 34 g/dL (31-37); MEAN CORPUSCULAR VOLUME 90 fL (79-100); MONO # 0.9 x10^3/uL (0.0-1.1); MONO % 6 % (0-9); NEUT % 77 % (31-73); PLATELET COUNT 447 x10^3/uL (140-400); RED BLOOD COUNT 5.19 x10^6/uL (3.50-5.40); RED CELL DISTRIBUTION WIDTH 13.6 % (11.5-14.5); WHITE BLOOD COUNT 15.6 x10^3/uL (4.0-11.0)
[2017-07-24 06:34] LABS: ANION GAP 13 (6-14); BLOOD UREA NITROGEN 11 mg/dL (7-20); CALCIUM 10.4 mg/dL (8.5-10.1); CARBON DIOXIDE 24 mmol/L (21-32); CHLORIDE 97 mmol/L (98-107); CREATININE 0.7 mg/dL (0.6-1.0); GFR 117.3; GLUCOSE 133 mg/dL (70-99); POTASSIUM 4.6 mmol/L (3.5-5.1); SODIUM 134 mmol/L (136-145)
[2017-07-24] MEDS: PANTOPRAZOLE IV PUSH 40 MG VIAL. IVP (07:30)
[2017-07-24] MEDS: METHOCARBAMOL 500 MG TABLET PO ×4 (08:04→20:40)
[2017-07-24] MEDS: PANTOPRAZOLE 40 MG TABLET.DR. PO (08:04)
[2017-07-24] MEDS: PROPRANOLOL 10 MG TABLET. PO (08:05)
[2017-07-24] MEDS: DULoxetine HCL 30 MG CAPSULE.DR PO (08:05)
[2017-07-24] MEDS: POLYETHYLENE GLYCOL 3350 17 GM PACKET. PO (15:09)
[2017-07-24] MEDS: DOCUSATE SODIUM 100 MG CAPSULE. PO (15:09)
[2017-07-24] MEDS: tiZANidine 4 MG TABLET. PO (20:41)
[2017-07-24] MEDS: ZOLPIDEM 5 MG TABLET. PO (20:41)
[2017-07-24] MEDS: BISACODYL 5 MG TABLET.DR. PO (22:09)
[2017-07-25] MEDS: BISACODYL 5 MG TABLET.DR. PO (02:04)
[2017-07-25] MEDS: oxyCODONE/APAP 10/325 1 TAB TABLET PO ×3 (02:05→12:45)
[2017-07-25 05:19] LABS: ADD MAN DIFF? NO
[2017-07-25 05:57] LABS: BASO % 0 % (0-3); EOS # 0.1 x10^3/uL (0.0-0.7); EOS % 1 % (0-3); HEMATOCRIT 43.9 % (36.0-47.0); HEMOGLOBIN 14.5 g/dL (12.0-15.5); LYMPH # 4.7 x10^3/uL (1.0-4.8); LYMPH % 38 % (24-48); MEAN CORPUSCULAR HEMOGLOBIN 30 pg (25-35); MEAN CORPUSCULAR HGB CONC 33 g/dL (31-37); MEAN CORPUSCULAR VOLUME 90 fL (79-100); MONO % 8 % (0-9); NEUT # 6.5 x10^3uL (1.8-7.7); NEUT % 52 % (31-73); PLATELET COUNT 397 x10^3/uL (140-400); RED BLOOD COUNT 4.86 x10^6/uL (3.50-5.40); RED CELL DISTRIBUTION WIDTH 13.7 % (11.5-14.5); WHITE BLOOD COUNT 12.3 x10^3/uL (4.0-11.0)
[2017-07-25 06:22] LABS: ALBUMIN 3.5 g/dL (3.4-5.0); ALBUMIN/GLOBULIN RATIO 0.8 (1.0-1.7); ALK PHOS 88 U/L (46-116); ALT (SGPT) 94 U/L (14-59); ANION GAP 11 (6-14); AST (SGOT) 86 U/L (15-37); BLOOD UREA NITROGEN 9 mg/dL (7-20); BUN/CREATININE RATIO 10 (6-20); CALCIUM 9.6 mg/dL (8.5-10.1); CARBON DIOXIDE 27 mmol/L (21-32); CHLORIDE 98 mmol/L (98-107); CREATININE 0.9 mg/dL (0.6-1.0); GFR 87.8; GLUCOSE 118 mg/dL (70-99); POTASSIUM 3.9 mmol/L (3.5-5.1); SODIUM 136 mmol/L (136-145); TOTAL BILIRUBIN 0.6 mg/dL (0.2-1.0); TOTAL PROTEIN 7.8 g/dL (6.4-8.2)
[2017-07-25] MEDS: DOCUSATE SODIUM 100 MG CAPSULE. PO (07:48)
[2017-07-25] MEDS: DULoxetine HCL 30 MG CAPSULE.DR PO (07:48)
[2017-07-25] MEDS: PANTOPRAZOLE 40 MG TABLET.DR. PO (07:49)
[2017-07-25] MEDS: PROPRANOLOL 10 MG TABLET. PO (07:50)
[2017-07-25] MEDS: POLYETHYLENE GLYCOL 3350 17 GM PACKET. PO (07:51)
[2017-07-25] MEDS: METHOCARBAMOL 500 MG TABLET PO ×2 (07:51→12:44)
[2017-07-25] MEDS: FLU VACC QS2017-18 (36MOS+)/PF 0.5 ML SYRINGE. VAX IM (12:51)
[2017-07-25] MEDS: NICOTINE 21MG PATCH. TD (13:51)
== END 2017-07-25 14:10 | disposition home or self-care (01) | DRG 417 ==
LOC: ER 09:30 → 4 NORTH 13:30
PROC: 0FT44ZZ Resection of Gallbladder, Percutaneous Endoscopic Approach (ICD-10-PCS; principal; 2017-07-23 13:38)
PROC: BF121ZZ Fluoroscopy of Gallbladder using Low Osmolar Contrast (ICD-10-PCS; 2017-07-23 13:38)
DX: K83.8 Other specified diseases of biliary tract (principal); R65.11 Systemic inflammatory response syndrome (SIRS) of non-infectious origin with acute organ dysfunction; E87.8 Other disorders of electrolyte and fluid balance, not elsewhere classified; Z68.42 Body mass index [BMI] 45.0-49.9, adult; E87.1 Hypo-osmolality and hyponatremia; K81.1 Chronic cholecystitis; E66.01 Morbid (severe) obesity due to excess calories; K76.0 Fatty (change of) liver, not elsewhere classified; K21.9 Gastro-esophageal reflux disease without esophagitis; F17.210 Nicotine dependence, cigarettes, uncomplicated; G47.00 Insomnia, unspecified; G89.29 Other chronic pain; H66.90 Otitis media, unspecified, unspecified ear; I10 Essential (primary) hypertension; K42.9 Umbilical hernia without obstruction or gangrene; K59.00 Constipation, unspecified; K64.9 Unspecified hemorrhoids; K82.8 Other specified diseases of gallbladder; F32.9 Major depressive disorder, single episode, unspecified; F41.9 Anxiety disorder, unspecified; R74.0 Nonspecific elevation of levels of transaminase and lactic acid dehydrogenase [LDH]; Z98.51 Tubal ligation status; Z80.9 Family history of malignant neoplasm, unspecified
CPT/HCPCS: 36415; 74300; 76700; 78226; 80048; 80053; 80074; 80076; 80307; 81001; 81025; 82553; 83605; 83690; 84484; 85025; 85610; 85730; 86708; 86709; 87086; 88304; 93005; 96361; 96374; 96375; 96376; 99285; 99285-25; A9537; C1769; C9113; J0690; J0780; J1100; J1170; J1885; J2270; J2405; J2704; J2805; J3010; J3490; J7030; Q0162; Q9967

== ENCOUNTER 2017-09-24 10:24 | Inpatient (IN) | payer OTHER ==
[2017-09-24] MEDS ORDERED: 0.9 % SODIUM CHLORIDE 10 ML DISP.SYRIN. IV (10:45)
[2017-09-24] MEDS: IOHEXOL 300 MG/ML 100ML VIAL. IV ×2 (11:00→11:45)
[2017-09-24] MEDS ORDERED: CONTRAST GIVEN MC ×2 (11:00→11:45)
[2017-09-24 11:06] LABS: ADD MAN DIFF? NO
[2017-09-24] MEDS: IV NORMAL SALINE 1000ML BAG 1,000 ML IV ×2 (11:08→14:30)
[2017-09-24] MEDS: MORPHINE SULFATE 4 MG/ML DISP.SYRIN. IV/SQ ×2 (11:09→12:01)
[2017-09-24] MEDS: ONDANSETRON PF 4 MG/2 ML VIAL. IV ×2 (11:10→16:33)
[2017-09-24] MEDS: FAMOTIDINE 20 MG/2 ML VIAL IVP (11:10)
[2017-09-24 11:12] LABS: BASO % 0 % (0-3); EOS # 0.3 x10^3/uL (0.0-0.7); EOS % 3 % (0-3); HEMATOCRIT 44.8 % (36.0-47.0); HEMOGLOBIN 14.9 g/dL (12.0-15.5); LYMPH # 3.7 x10^3/uL (1.0-4.8); LYMPH % 40 % (24-48); MEAN CORPUSCULAR HEMOGLOBIN 29 pg (25-35); MEAN CORPUSCULAR HGB CONC 33 g/dL (31-37); MEAN CORPUSCULAR VOLUME 88 fL (79-100); MONO # 0.7 x10^3/uL (0.0-1.1); MONO % 8 % (0-9); NEUT # 4.5 x10^3uL (1.8-7.7); NEUT % 49 % (31-73); PLATELET COUNT 415 x10^3/uL (140-400); RED BLOOD COUNT 5.09 x10^6/uL (3.50-5.40); RED CELL DISTRIBUTION WIDTH 13.3 % (11.5-14.5); WHITE BLOOD COUNT 9.2 x10^3/uL (4.0-11.0)
[2017-09-24 11:24] LABS: ANION GAP 8 (6-14); BLOOD UREA NITROGEN 10 mg/dL (7-20); CALCIUM 9.6 mg/dL (8.5-10.1); CARBON DIOXIDE 25 mmol/L (21-32); CHLORIDE 103 mmol/L (98-107); CREATININE 0.8 mg/dL (0.6-1.0); GFR 100.6; GLUCOSE 116 mg/dL (70-99); POTASSIUM 3.7 mmol/L (3.5-5.1); SODIUM 136 mmol/L (136-145)
[2017-09-24 11:31] LABS: ALBUMIN 3.6 g/dL (3.4-5.0); ALK PHOS 91 U/L (46-116); ALT (SGPT) 125 U/L (14-59); AST (SGOT) 194 U/L (15-37); DIRECT BILIRUBIN 0.1 mg/dL (0.0-0.2); LIPASE 94 U/L (73-393); TOTAL BILIRUBIN 0.6 mg/dL (0.2-1.0)
[2017-09-24 11:31] LABS: TROPONINI < 0.017 ng/mL (0.000-0.055)
[2017-09-24 11:39] LABS: CKMB MASS < 0.5 ng/mL (0.0-3.6); CREATINE KINASE 148 U/L (26-192)
[2017-09-24] MEDS: MORPHINE SULFATE 4 MG/ML DISP.SYRIN. IV (11:45)
[2017-09-24 12:14] LABS: URINE HCG POC HCG NEGATIVE (Negative)
[2017-09-24 12:20] LABS: BILIRUBIN,URINE NEGATIVE (NEG); COLOR,URINE RED; GLUCOSE,URINE NEGATIVE (NEG); NITRITE,URINE NEGATIVE (NEG); PROTEIN,URINE 30 mg/dL (NEG-TRACE)
[2017-09-24 12:26] LABS: BARBITURATES NEG (NEG); BENZODIAZEPINES NEG (NEG); CANNABINOIDS POS (NEG); COCAINE POS (NEG); METHADONE NEG (NEG); OPIATES POS (NEG); PHENCYCLIDINE NEG (NEG)
[2017-09-24 12:27] LABS: BACTERIA,URINE MANY /HPF (0-FEW); CLARITY,URINE HAZY; RBC,URINE TNTC /HPF (0-2); SQUAMOUS EPITHELIAL CELL,UR MANY /LPF
[2017-09-24 12:31] LABS: AMPHETAMINE/METHAMPHETAMINE NEG (NEG); ETHANOL, URINE NEG (NEG)
[2017-09-24] MEDS: fentaNYL PF VIAL 100 MCG/2 ML VIAL IV ×5 (13:30→20:01)
[2017-09-24] MEDS ORDERED: POLYETHYLENE GLYCOL 3350 17 GM PACKET. PO (16:15)
[2017-09-24] MEDS: PANTOPRAZOLE 40 MG TABLET.DR. PO (16:32)
[2017-09-24] MEDS ORDERED: NAPROXEN 500 MG TABLET PO (21:00)
[2017-09-24] MEDS ORDERED: CYCLOBENZAPRINE 10 MG TABLET. PO (21:00)
[2017-09-24] MEDS: DULoxetine HCL 30 MG CAPSULE.DR PO (21:10)
[2017-09-24] MEDS: busPIRone 10 MG TABLET. PO (21:10)
[2017-09-24] MEDS: HYDROcodone/APAP 5/325MG 1 TAB TABLET PO (21:11)
[2017-09-24] MEDS: traZODone 100 MG TABLET. PO (21:12)
[2017-09-24] MEDS: ZOLPIDEM 5 MG TABLET. PO (21:12)
[2017-09-24] MEDS: NIACIN ER 500 MG TABLET.ER PO (21:12)
[2017-09-24] MEDS: PROPRANOLOL 40 MG TABLET. PO (21:12)
[2017-09-24] MEDS: NICOTINE 14MG PATCH. TD (21:13)
[2017-09-24] MEDS: GABAPENTIN 300 MG CAPSULE. PO (21:13)
[2017-09-25] MEDS: ONDANSETRON PF 4 MG/2 ML VIAL. IV ×3 (03:58→15:56)
[2017-09-25] MEDS: fentaNYL PF VIAL 100 MCG/2 ML VIAL IV ×6 (03:58→21:08)
[2017-09-25] MEDS: IV NORMAL SALINE 1000ML BAG 1,000 ML IV ×2 (03:59→08:33)
[2017-09-25] MEDS: HYDROcodone/APAP 5/325MG 1 TAB TABLET PO ×3 (04:15→20:03)
[2017-09-25] MEDS: tiZANidine 4 MG TABLET. PO (04:15)
[2017-09-25] MEDS: DULoxetine HCL 30 MG CAPSULE.DR PO ×2 (08:33→20:03)
[2017-09-25] MEDS: busPIRone 10 MG TABLET. PO ×2 (08:33→20:03)
[2017-09-25] MEDS: PROPRANOLOL 40 MG TABLET. PO ×2 (08:38→20:04)
[2017-09-25] MEDS: GABAPENTIN 300 MG CAPSULE. PO ×3 (08:38→20:03)
[2017-09-25] MEDS: NICOTINE 14MG PATCH. TD (08:38)
[2017-09-25] MEDS: PANTOPRAZOLE 40 MG TABLET.DR. PO (08:44)
[2017-09-25] MEDS: ZOLPIDEM 5 MG TABLET. PO (20:02)
[2017-09-25] MEDS: NIACIN ER 500 MG TABLET.ER PO (20:03)
[2017-09-25] MEDS: traZODone 100 MG TABLET. PO (20:03)
[2017-09-26] MEDS: HYDROcodone/APAP 5/325MG 1 TAB TABLET PO ×4 (02:57→22:56)
[2017-09-26] MEDS: PANTOPRAZOLE 40 MG TABLET.DR. PO (06:20)
[2017-09-26] MEDS: fentaNYL PF VIAL 100 MCG/2 ML VIAL IV ×4 (06:21→21:04)
[2017-09-26] MEDS: ONDANSETRON PF 4 MG/2 ML VIAL. IV ×2 (06:33→14:07)
[2017-09-26 07:39] LABS: ADD MAN DIFF? NO
[2017-09-26 07:58] LABS: BASO % 0 % (0-3); EOS # 0.4 x10^3/uL (0.0-0.7); EOS % 4 % (0-3); HEMATOCRIT 42.5 % (36.0-47.0); HEMOGLOBIN 13.9 g/dL (12.0-15.5); LYMPH # 2.9 x10^3/uL (1.0-4.8); LYMPH % 36 % (24-48); MEAN CORPUSCULAR HEMOGLOBIN 29 pg (25-35); MEAN CORPUSCULAR HGB CONC 33 g/dL (31-37); MEAN CORPUSCULAR VOLUME 89 fL (79-100); MONO # 0.7 x10^3/uL (0.0-1.1); MONO % 9 % (0-9); NEUT # 4.1 x10^3uL (1.8-7.7); NEUT % 51 % (31-73); PLATELET COUNT 360 x10^3/uL (140-400); RED BLOOD COUNT 4.76 x10^6/uL (3.50-5.40); RED CELL DISTRIBUTION WIDTH 13.6 % (11.5-14.5)
[2017-09-26 08:00] LABS: ANION GAP 10 (6-14); BLOOD UREA NITROGEN 5 mg/dL (7-20); CALCIUM 8.5 mg/dL (8.5-10.1); CARBON DIOXIDE 25 mmol/L (21-32); CHLORIDE 105 mmol/L (98-107); CREATININE 0.8 mg/dL (0.6-1.0); GFR 100.6; GLUCOSE 119 mg/dL (70-99); POTASSIUM 3.8 mmol/L (3.5-5.1); SODIUM 140 mmol/L (136-145)
[2017-09-26] MEDS: GABAPENTIN 300 MG CAPSULE. PO ×3 (08:23→21:02)
[2017-09-26] MEDS: busPIRone 10 MG TABLET. PO ×2 (08:23→21:02)
[2017-09-26] MEDS: DULoxetine HCL 30 MG CAPSULE.DR PO ×2 (08:23→21:02)
[2017-09-26] MEDS: NICOTINE 14MG PATCH. TD (08:24)
[2017-09-26] MEDS: PROPRANOLOL 40 MG TABLET. PO ×2 (08:41→21:03)
[2017-09-26] MEDS: guaiFENesin DM 200MG/20MG 10 ML SYRUP PO (21:01)
[2017-09-26] MEDS: traZODone 100 MG TABLET. PO (21:02)
[2017-09-26] MEDS: NIACIN ER 500 MG TABLET.ER PO (21:02)
[2017-09-26] MEDS: ZOLPIDEM 5 MG TABLET. PO (21:02)
[2017-09-26] MEDS: LACTOBACILLUS RHAMNOSUS GG 1 CAPSULE. PO (21:02)
[2017-09-26] MEDS: cefTRIAXone IV Push 1 GM VIAL. IVP (21:04)
[2017-09-27] MEDS: HYDROcodone/APAP 5/325MG 1 TAB TABLET PO ×2 (03:00→18:52)
[2017-09-27] MEDS: fentaNYL PF VIAL 100 MCG/2 ML VIAL IV ×3 (05:42→22:01)
[2017-09-27 09:53] LABS: ADD MAN DIFF? NO
[2017-09-27 10:02] LABS: BASO % 0 % (0-3); EOS # 0.4 x10^3/uL (0.0-0.7); EOS % 6 % (0-3); HEMATOCRIT 41.8 % (36.0-47.0); HEMOGLOBIN 13.6 g/dL (12.0-15.5); LYMPH % 44 % (24-48); MEAN CORPUSCULAR HEMOGLOBIN 29 pg (25-35); MEAN CORPUSCULAR HGB CONC 32 g/dL (31-37); MEAN CORPUSCULAR VOLUME 89 fL (79-100); MONO # 0.6 x10^3/uL (0.0-1.1); MONO % 8 % (0-9); NEUT # 2.9 x10^3uL (1.8-7.7); NEUT % 42 % (31-73); PLATELET COUNT 360 x10^3/uL (140-400); RED CELL DISTRIBUTION WIDTH 13.7 % (11.5-14.5); WHITE BLOOD COUNT 6.9 x10^3/uL (4.0-11.0)
[2017-09-27 10:17] LABS: ANION GAP 8 (6-14); BLOOD UREA NITROGEN 7 mg/dL (7-20); CALCIUM 8.4 mg/dL (8.5-10.1); CARBON DIOXIDE 29 mmol/L (21-32); CHLORIDE 106 mmol/L (98-107); CREATININE 0.8 mg/dL (0.6-1.0); GFR 100.6; GLUCOSE 97 mg/dL (70-99); POTASSIUM 3.7 mmol/L (3.5-5.1); SODIUM 143 mmol/L (136-145)
[2017-09-27] MEDS: ONDANSETRON PF 4 MG/2 ML VIAL. IV ×2 (10:48→22:38)
[2017-09-27 11:19] LABS: ALBUMIN 3.2 g/dL (3.4-5.0); ALK PHOS 79 U/L (46-116); ALT (SGPT) 88 U/L (14-59); AST (SGOT) 79 U/L (15-37); DIRECT BILIRUBIN 0.1 mg/dL (0.0-0.2); TOTAL BILIRUBIN 0.5 mg/dL (0.2-1.0); TOTAL PROTEIN 6.7 g/dL (6.4-8.2)
[2017-09-27] MEDS: PANTOPRAZOLE 40 MG TABLET.DR. PO (12:48)
[2017-09-27] MEDS: DULoxetine HCL 30 MG CAPSULE.DR PO ×2 (12:48→21:59)
[2017-09-27] MEDS: PROPRANOLOL 40 MG TABLET. PO ×2 (12:48→22:01)
[2017-09-27] MEDS: LACTOBACILLUS RHAMNOSUS GG 1 CAPSULE. PO ×2 (12:48→21:59)
[2017-09-27] MEDS: GABAPENTIN 300 MG CAPSULE. PO ×3 (12:48→21:59)
[2017-09-27] MEDS: busPIRone 10 MG TABLET. PO ×2 (12:49→21:59)
[2017-09-27] MEDS: NICOTINE 14MG PATCH. TD (12:49)
[2017-09-27 13:19] LABS: HCV ANTIBODY <0.1 s/co ratio (0.0-0.9); HEP A IGM ABDY Negative (Negative); HEP B SURFACE AG Negative (Negative)
[2017-09-27] MEDS: NIACIN ER 500 MG TABLET.ER PO (21:59)
[2017-09-27] MEDS: ZOLPIDEM 5 MG TABLET. PO (21:59)
[2017-09-27] MEDS: traZODone 100 MG TABLET. PO (22:01)
[2017-09-27] MEDS: cefTRIAXone IV Push 1 GM VIAL. IVP (22:01)
[2017-09-28] MEDS: HYDROcodone/APAP 5/325MG 1 TAB TABLET PO ×3 (04:18→13:45)
[2017-09-28 05:10] LABS: ADD MAN DIFF? NO
[2017-09-28 05:27] LABS: BASO % 0 % (0-3); EOS # 0.3 x10^3/uL (0.0-0.7); EOS % 5 % (0-3); HEMATOCRIT 41.7 % (36.0-47.0); HEMOGLOBIN 13.5 g/dL (12.0-15.5); LYMPH # 2.9 x10^3/uL (1.0-4.8); LYMPH % 39 % (24-48); MEAN CORPUSCULAR HEMOGLOBIN 29 pg (25-35); MEAN CORPUSCULAR HGB CONC 32 g/dL (31-37); MEAN CORPUSCULAR VOLUME 89 fL (79-100); MONO # 0.5 x10^3/uL (0.0-1.1); MONO % 7 % (0-9); NEUT # 3.6 x10^3uL (1.8-7.7); NEUT % 50 % (31-73); PLATELET COUNT 353 x10^3/uL (140-400); RED CELL DISTRIBUTION WIDTH 13.5 % (11.5-14.5); WHITE BLOOD COUNT 7.3 x10^3/uL (4.0-11.0)
[2017-09-28 05:57] LABS: ANION GAP 11 (6-14); BLOOD UREA NITROGEN 5 mg/dL (7-20); CALCIUM 8.6 mg/dL (8.5-10.1); CARBON DIOXIDE 26 mmol/L (21-32); CHLORIDE 105 mmol/L (98-107); CREATININE 0.8 mg/dL (0.6-1.0); GFR 100.6; GLUCOSE 123 mg/dL (70-99); POTASSIUM 3.7 mmol/L (3.5-5.1); SODIUM 142 mmol/L (136-145)
[2017-09-28] MEDS: fentaNYL PF VIAL 100 MCG/2 ML VIAL IV ×2 (06:41→13:26)
[2017-09-28] MEDS: DULoxetine HCL 30 MG CAPSULE.DR PO (08:37)
[2017-09-28] MEDS: PROPRANOLOL 40 MG TABLET. PO (08:37)
[2017-09-28] MEDS: busPIRone 10 MG TABLET. PO (08:37)
[2017-09-28] MEDS: LACTOBACILLUS RHAMNOSUS GG 1 CAPSULE. PO (08:37)
[2017-09-28] MEDS: GABAPENTIN 300 MG CAPSULE. PO ×2 (08:37→13:25)
[2017-09-28] MEDS: PANTOPRAZOLE 40 MG TABLET.DR. PO (08:37)
[2017-09-28] MEDS: NICOTINE 14MG PATCH. TD (08:38)
== END 2017-09-28 16:30 | disposition home or self-care (01) | DRG 392 ==
LOC: ER 10:24 → 5 SOUTH 14:12
DX: K31.84 Gastroparesis (principal); E66.01 Morbid (severe) obesity due to excess calories; K76.0 Fatty (change of) liver, not elsewhere classified; Z68.41 Body mass index [BMI] 40.0-44.9, adult; K29.60 Other gastritis without bleeding; G62.9 Polyneuropathy, unspecified; E78.5 Hyperlipidemia, unspecified; F12.10 Cannabis abuse, uncomplicated; F14.10 Cocaine abuse, uncomplicated; F17.210 Nicotine dependence, cigarettes, uncomplicated; F32.9 Major depressive disorder, single episode, unspecified; F41.9 Anxiety disorder, unspecified; I10 Essential (primary) hypertension; K21.9 Gastro-esophageal reflux disease without esophagitis; Z79.1 Long term (current) use of non-steroidal anti-inflammatories (NSAID); Z80.9 Family history of malignant neoplasm, unspecified; Z82.49 Family history of ischemic heart disease and other diseases of the circulatory system; Z90.49 Acquired absence of other specified parts of digestive tract; G89.29 Other chronic pain; Z98.51 Tubal ligation status; F19.10 Other psychoactive substance abuse, uncomplicated
CPT/HCPCS: 36415; 74177; 78264; 80048; 80074; 80076; 80307; 81001; 81025; 82553; 83690; 84484; 85025; 87086; 93005; 96361; 96374; 96375; 96376; 99291; 99291-25; 99406; A9541; J0696; J2270; J2405; J3010; J7030; S0028

== ENCOUNTER 2017-10-07 19:07 | Emergency (ER) | payer OTHER ==
[2017-10-07 20:28] LABS: URINE HCG POC HCG NEGATIVE (Negative)
[2017-10-07 21:23] LABS: ADD MAN DIFF? NO
[2017-10-07 21:27] LABS: BASO % 0 % (0-3); BILIRUBIN,URINE NEGATIVE (NEG); CLARITY,URINE CLEAR; COLOR,URINE YELLOW; EOS # 0.3 x10^3/uL (0.0-0.7); EOS % 3 % (0-3); GLUCOSE,URINE NEGATIVE (NEG); LYMPH # 4.4 x10^3/uL (1.0-4.8); LYMPH % 36 % (24-48); MEAN CORPUSCULAR HEMOGLOBIN 30 pg (25-35); MEAN CORPUSCULAR HGB CONC 34 g/dL (31-37); MEAN CORPUSCULAR VOLUME 87 fL (79-100); MONO # 0.9 x10^3/uL (0.0-1.1); MONO % 7 % (0-9); NEUT # 6.6 x10^3uL (1.8-7.7); NEUT % 54 % (31-73); NITRITE,URINE NEGATIVE (NEG); PH,URINE 5.5; PLATELET COUNT 463 x10^3/uL (140-400); PROTEIN,URINE NEGATIVE (NEG-TRACE); RED BLOOD COUNT 5.04 x10^6/uL (3.50-5.40); RED CELL DISTRIBUTION WIDTH 13.2 % (11.5-14.5); UROBILINOGEN,URINE 0.2 mg/dL (0.2 mg/dL); WHITE BLOOD COUNT 12.3 x10^3/uL (4.0-11.0)
[2017-10-07 21:31] LABS: BACTERIA,URINE 0 /HPF (0-FEW); RBC,URINE 0 /HPF (0-2); SQUAMOUS EPITHELIAL CELL,UR FEW /LPF
[2017-10-07 21:32] LABS: AMORPHOUS SEDIMENT,UR PRESENT /HPF
[2017-10-07 21:33] LABS: ANION GAP 12 (6-14); BARBITURATES NEG (NEG); BENZODIAZEPINES NEG (NEG); BLOOD UREA NITROGEN 10 mg/dL (7-20); BUN/CREATININE RATIO 11 (6-20); CALCIUM 8.9 mg/dL (8.5-10.1); CANNABINOIDS NEG (NEG); CARBON DIOXIDE 25 mmol/L (21-32); CHLORIDE 103 mmol/L (98-107); COCAINE NEG (NEG); CREATININE 0.9 mg/dL (0.6-1.0); GFR 87.8; GLUCOSE 117 mg/dL (70-99); METHADONE NEG (NEG); OPIATES NEG (NEG); PHENCYCLIDINE NEG (NEG); POTASSIUM 3.9 mmol/L (3.5-5.1); SODIUM 140 mmol/L (136-145)
[2017-10-07 21:34] LABS: AMPHETAMINE/METHAMPHETAMINE NEG (NEG); ETHANOL, URINE NEG (NEG)
[2017-10-07] MEDS: KETOROLAC 30 MG/ML INJ. IV (21:34)
[2017-10-07] MEDS: IV NORMAL SALINE 1000ML BAG 1,000 ML IV (21:35)
[2017-10-07] MEDS: ONDANSETRON PF 4 MG/2 ML VIAL. IV (21:35)
[2017-10-07 21:38] LABS: ALBUMIN 3.9 g/dL (3.4-5.0); ALBUMIN/GLOBULIN RATIO 0.8 (1.0-1.7); ALK PHOS 105 U/L (46-116); ALT (SGPT) 70 U/L (14-59); AST (SGOT) 104 U/L (15-37); LIPASE 121 U/L (73-393); TOTAL BILIRUBIN 0.5 mg/dL (0.2-1.0); TOTAL PROTEIN 8.5 g/dL (6.4-8.2)
[2017-10-07] MEDS: IOHEXOL 300 MG/ML 100ML VIAL. IV (22:13)
[2017-10-07] MEDS ORDERED: CONTRAST GIVEN MC (22:15)
[2017-10-07] MEDS: PANTOPRAZOLE IV PUSH 40 MG VIAL. IVP (22:24)
== END 2017-10-07 23:45 | disposition home or self-care (01) ==
LOC: ER 19:07
DX: K43.9 Ventral hernia without obstruction or gangrene (principal); F41.9 Anxiety disorder, unspecified; I10 Essential (primary) hypertension; G89.29 Other chronic pain; F12.10 Cannabis abuse, uncomplicated; Z98.51 Tubal ligation status; Z90.49 Acquired absence of other specified parts of digestive tract
CPT/HCPCS: 36415; 74178; 80053; 80307; 81001; 81025; 83690; 85025; 96361; 96374; 96375; 96376; 99285-25; C9113; J1885; J2060; J2405; J7030; Q9967

== ENCOUNTER → 2017-10-08 | Day surgery (SDC) | payer OTHER ==
[~2017-10-08] MED LIST changes: -ACET-704 PO; -CYCL10TA2 PO; -HYDR-971 PO; +LIDOCAINE 2% PF Vial for OR 5 ML VIAL.; -METH-37 PO; -METH4TAB2 PO; -NAPR500T PO; -NAPR500T8 PO; -ONDA4TAB10 SL; -ONDA4TAB7 PO; +PROPOFOL 20 ML IV; -TRIA1CAP13 PO
[2017-10-08] MEDS: IV RINGERS,LACTATED 1000ML 1,000 ML IV (10:37)
[2017-10-08 12:22] LABS: NEG OBC UR NEG; POS OBC UR POS; U PREG PATIENT NEGATIVE (NEG)
== END ==
LOC: ENDOS 09:12
DX: K29.50 Unspecified chronic gastritis without bleeding (principal); K21.9 Gastro-esophageal reflux disease without esophagitis; I10 Essential (primary) hypertension; E78.5 Hyperlipidemia, unspecified; F41.9 Anxiety disorder, unspecified; F32.9 Major depressive disorder, single episode, unspecified; Z98.51 Tubal ligation status; Z90.49 Acquired absence of other specified parts of digestive tract; Z87.891 Personal history of nicotine dependence; Z80.1 Family history of malignant neoplasm of trachea, bronchus and lung; Z80.0 Family history of malignant neoplasm of digestive organs
CPT/HCPCS: 43235; 81025; J2704

== ENCOUNTER 2017-12-07 14:58 | Emergency (ER) | payer OTHER ==
[2017-12-07 15:23] LABS: BILIRUBIN,URINE NEGATIVE (NEG); CLARITY,URINE CLEAR; COLOR,URINE YELLOW; GLUCOSE,URINE NEGATIVE (NEG); NITRITE,URINE NEGATIVE (NEG); PROTEIN,URINE 30 mg/dL (NEG-TRACE)
[2017-12-07 15:49] LABS: BACTERIA,URINE FEW /HPF (0-FEW); RBC,URINE 0 /HPF (0-2); SQUAMOUS EPITHELIAL CELL,UR MOD /LPF; WBC,URINE 0 /HPF (0-4)
[2017-12-07] MEDS: HALOPERIDOL LACTATE 5 MG/ML VIAL. IM (16:09)
[2017-12-07] MEDS: ONDANSETRON ODT 4 MG TAB.RAPDIS. PO (16:09)
[2017-12-07] MEDS: diazePAM 5 MG TABLET PO (16:11)
[2017-12-07] MEDS: KETOROLAC 60 MG/2 ML INJ. IM (16:12)
== END 2017-12-07 17:29 | disposition home or self-care (01) ==
LOC: ER 14:58
DX: G89.29 Other chronic pain (principal); M79.605 Pain in left leg; K21.9 Gastro-esophageal reflux disease without esophagitis; I10 Essential (primary) hypertension; F12.10 Cannabis abuse, uncomplicated
CPT/HCPCS: 51701; 81001; 96372; 99284-25; J1630; J1885; Q0162

== ENCOUNTER 2018-03-19 02:21 | Emergency (ER) | payer OTHER ==
[~2018-03-19] VITALS: Ht 172.7 cm; Wt 124.3 kg
[~2018-03-19 02:21] MED LIST changes: +ACET-704 PO; +BUSP10TA PO; +CYCL10TA2 PO; +DICL50TA4 PO; +DULO60CA6 PO; +GABA-586 PO; +HYDR-971 PO; -LIDOCAINE 2% PF Vial for OR 5 ML VIAL.; +METH-37 PO; +METH4TAB2 PO; +NAPR-683 PO; +NAPR500T8 PO; +NIAC500T PO; +NICO1PAT25 TP; +OMEP20TA63 PO; +ONDA4TAB10 PO; +ONDA4TAB10 SL; +ONDA4TAB7 PO; +OXYC-411 PO; +PROP60TA PO; -PROPOFOL 20 ML IV; +TIZA4TAB PO; +TRAZ300T2 PO; +TRIA1CAP13 PO; +ZOLP5TAB PO
[2018-03-19 02:43] VITALS: BP 154/97
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
[2018-03-19] MEDS: traMADol 50 MG TABLET PO ONE (05:07)
[2018-03-19] MEDS: IBUPROFEN 600 MG TABLET. PO ONE (05:07)
== END 2018-03-19 05:10 | disposition home or self-care (01) ==
LOC: ER 02:21
DX: S09.93XA Unspecified injury of face, initial encounter (principal); F41.9 Anxiety disorder, unspecified; H02.89 Other specified disorders of eyelid; I10 Essential (primary) hypertension; K21.9 Gastro-esophageal reflux disease without esophagitis; G89.29 Other chronic pain; W51.XXXA Accidental striking against or bumped into by another person, initial encounter; Y93.89 Activity, other specified; Y92.89 Other specified places as the place of occurrence of the external cause; Y99.8 Other external cause status
CPT/HCPCS: 70450; 70486; 81025; 99284-25

== ENCOUNTER 2018-07-23 09:38 | Emergency (ER) | payer OTHER ==
[~2018-07-23] VITALS: Ht 172.7 cm; Wt 117.9 kg
[~2018-07-23 09:38] MED LIST changes: -GABA-586 PO; +GABA300C18 PO; +HYDR-3164 PO; -HYDR-971 PO
[2018-07-23 10:25] LABS: BASO % 0 % (0-3); EOS # 0.2 x10^3/uL (0.0-0.7); EOS % 2 % (0-3); HEMATOCRIT 46.5 % (36.0-47.0); HEMOGLOBIN 15.5 g/dL (12.0-15.5); LYMPH # 2.1 x10^3/uL (1.0-4.8); LYMPH % 26 % (24-48); MEAN CORPUSCULAR HEMOGLOBIN 29 pg (25-35); MEAN CORPUSCULAR HGB CONC 33 g/dL (31-37); MEAN CORPUSCULAR VOLUME 88 fL (79-100); MONO # 0.5 x10^3/uL (0.0-1.1); MONO % 7 % (0-9); NEUT # 5.2 x10^3uL (1.8-7.7); NEUT % 65 % (31-73); PLATELET COUNT 419 x10^3/uL (140-400); RED CELL DISTRIBUTION WIDTH 14.2 % (11.5-14.5)
[2018-07-23 10:26] LABS: BILIRUBIN,URINE SMALL (NEG); CLARITY,URINE CLOUDY; NITRITE,URINE NEGATIVE (NEG); PROTEIN,URINE 100 mg/dL (NEG-TRACE)
[2018-07-23 10:27] LABS: COLOR,URINE YELLOW
[2018-07-23] MEDS ORDERED: DICYCLOMINE 20 MG/2 ML AMPUL. IM ONE (10:30)
[2018-07-23] MEDS ORDERED: fentaNYL PF VIAL 100 MCG/2 ML VIAL IV ONE ×2 (10:30→11:00)
[2018-07-23] MEDS ORDERED: ONDANSETRON PF 4 MG/2 ML VIAL. IV ONE (10:30)
[2018-07-23] MEDS ORDERED: IV NORMAL SALINE 1000ML BAG 1,000 ML IV ONE (10:30)
[2018-07-23 10:31] LABS: BACTERIA,URINE MANY /HPF (0-FEW); SQUAMOUS EPITHELIAL CELL,UR MANY /LPF
[2018-07-23 10:32] LABS: CALCIUM 9.4 mg/dL (8.5-10.1); CREATININE 0.8 mg/dL (0.6-1.0); POTASSIUM 3.7 mmol/L (3.5-5.1)
[2018-07-23 10:32] LABS: RBC,URINE OCC /HPF (0-2)
[2018-07-23 10:37] LABS: ALBUMIN 3.9 g/dL (3.4-5.0); ALBUMIN/GLOBULIN RATIO 0.8 (1.0-1.7); TOTAL BILIRUBIN 0.8 mg/dL (0.2-1.0); TOTAL PROTEIN 8.6 g/dL (6.4-8.2)
--- NOTE | 2018-07-23 11:01 | PHYS DOC ---
Past Medical History Past Medical History: Anxiety, Depression, GERD, Hypertension, Other Additional Past Medical Histor: Hemorrhoids,NEUROPATHY,CHRONIC LEFT FOOT PAIN, CRPS,obesity, INSOMNIA Past Surgical History: Cholecystectomy, Tubal ligation Additional Information: 1/2 pack/day Alcohol Use: Occasionally Drug Use: Marijuana Adult General Chief Complaint Chief Complaint: ABDOMINAL PAIN HPI HPI 33-year-old female presents to ER for complaints of right side upper abdominal pain which is been ongoing for the past 2 days. Patient reports she had similar pain last year and had her gallbladder removed. Patient states she has had intermittent nausea with 3 episodes of vomiting today. Patient denies diarrhea today. Patient states she has had some dysuria denies any other urinary symptoms. Patient denies vaginal issues. Patient denies monthly menstrual cycle due to being on Depo and she has had tubaligation. Review of Systems Review of Systems Constitutional: Reports chills and felt feverish- denies checking temp. Eyes: Denies change in visual acuity, redness, or eye pain [] HENT: Denies nasal congestion or sore throat [] Respiratory: Denies cough or shortness of breath [] Cardiovascular: Denies CP/palpitations GI: Denies bloody stools. Reports intermittent diarrhea past 2 days denies today. Reports rt upper abd pain with intermittent N/V- 3 episodes today. : Denies hematuria. Reports dysuria. Denies vaginal sxs Musculoskeletal: Denies back pain or joint pain [] Integument: Denies rash or skin lesions [] Neurologic: Denies headache, focal weakness or sensory changes [] All other systems were reviewed and found to be within normal limits, except as documented in this note. Current Medications Current Medications Current Medications Medications (Trade) Dose Ordered Sig/Tanja Start Time Stop Time Status Last Admin Dose Admin Dicyclomine HCl (Bentyl) 20 mg 1X ONCE 07/23/18 10:30 07/23/18 10:31 DC 07/23/18 10:19 20 MG Fentanyl Citrate (Fentanyl 2ml Vial) 50 mcg 1X ONCE 07/23/18 11:00 07/23/18 11:01 DC 07/23/18 12:01 50 MCG Info (CONTRAST GIVEN -- Rx MONITORING) 1 each PRN DAILY PRN 07/23/18 11:15 07/23/18 13:26 DC Iohexol (Omnipaque 300 Mg/ml) 100 ml 1X ONCE 07/23/18 11:30 07/23/18 11:31 DC Ondansetron HCl (Zofran) 4 mg 1X ONCE 07/23/18 10:30 07/23/18 10:31 DC 07/23/18 10:19 4 MG Sodium Chloride 1,000 ml @ 1,000 mls/hr 1X ONCE 07/23/18 10:30 07/23/18 11:29 DC 07/23/18 10:19 1,000 MLS/HR Allergies Allergies Allergies Coded Allergies Type Severity Reaction Last Updated Verified No Known Drug Allergies 10/08/17 No Physical Exam Physical Exam Constitutional: Well developed, well nourished, no acute distress, non-toxic appearance. [] HENT: Normocephalic, atraumatic, oropharynx moist, nose normal. [] Eyes: Pupils equal, conjunctiva normal, no discharge. [] Neck: Normal range of motion, no tenderness, supple, no stridor. [] Cardiovascular: Heart rate regular rhythm, no murmur [] Lungs & Thorax: Bilateral breath sounds clear to auscultation. Resp. equal/ nonlabored Abdomen: Bowel sounds normal, soft/obese, tender on palp. mid upper to rt side abd- no rigidity/distention, no rebound tenderness, no masses, no pulsatile masses. [] Skin: Warm, dry, no erythema, no rash. [] Back: No tenderness, no CVA tenderness. [] Extremities: No tenderness, no cyanosis, no clubbing, ROM intact, no edema. [] Neurologic: Alert and oriented X 3, normal motor function, normal sensory function, no focal deficits noted. [] Psychologic: Affect normal, judgement normal, mood normal. [] Current Patient Data Vital Signs Vital Signs Date Time Temp Pulse Resp B/P (MAP) Pulse Ox O2 Delivery O2 Flow Rate FiO2 07/23/18 13:00 60 18 118/58 (78) 97 Room Air 07/23/18 09:57 99.0 99.0 Lab Values Laboratory Tests Test 07/23/18 09:45 07/23/18 09:46 07/23/18 10:00 Urine Collection Type Unknown Urine Color Yellow Urine Clarity Cloudy Urine pH 6.0 Urine Specific [place] 1.025 Urine Protein 100 mg/dL (NEG-TRACE) Urine Glucose (UA) Negative mg/dL (NEG) Urine Ketones (Stick) Negative mg/dL (NEG) Urine Blood Negative (NEG) Urine Nitrite Negative (NEG) Urine Bilirubin Small (NEG) Urine Urobilinogen Dipstick 4.0 mg/dL (0.2 mg/dL) Urine Leukocyte Esterase Small (NEG) Urine RBC Occ /HPF (0-2) Urine WBC 1-4 /HPF (0-4) Urine Squamous Epithelial Cells Many /LPF Urine Bacteria Many /HPF (0-FEW) Urine Mucus Marked /LPF POC Urine HCG, Qualitative Hcg negative (Negative) White Blood Count 8.0 x10^3/uL (4.0-11.0) Red Blood Count 5.30 x10^6/uL (3.50-5.40) Hemoglobin 15.5 g/dL (12.0-15.5) Hematocrit 46.5 % (36.0-47.0) Mean Corpuscular Volume 88 fL (79-100) Mean Corpuscular Hemoglobin 29 pg (25-35) Mean Corpuscular Hemoglobin Concent 33 g/dL (31-37) Red Cell Distribution Width 14.2 % (11.5-14.5) Platelet Count 419 x10^3/uL (140-400) H Neutrophils (%) (Auto) 65 % (31-73) Lymphocytes (%) (Auto) 26 % (24-48) Monocytes (%) (Auto) 7 % (0-9) Eosinophils (%) (Auto) 2 % (0-3) Basophils (%) (Auto) 0 % (0-3) Neutrophils # (Auto) 5.2 x10^3uL (1.8-7.7) Lymphocytes # (Auto) 2.1 x10^3/uL (1.0-4.8) Monocytes # (Auto) 0.5 x10^3/uL (0.0-1.1) Eosinophils # (Auto) 0.2 x10^3/uL (0.0-0.7) Basophils # (Auto) 0.0 x10^3/uL (0.0-0.2) Sodium Level 138 mmol/L (136-145) Potassium Level 3.7 mmol/L (3.5-5.1) Chloride Level 99 mmol/L (98-107) Carbon Dioxide Level 26 mmol/L (21-32) Anion Gap 13 (6-14) Blood Urea Nitrogen 8 mg/dL (7-20) Creatinine 0.8 mg/dL (0.6-1.0) Estimated GFR (Cockcroft-Gault) 100.0 BUN/Creatinine Ratio 10 (6-20) Glucose Level 134 mg/dL (70-99) H Calcium Level 9.4 mg/dL (8.5-10.1) Total Bilirubin 0.8 mg/dL (0.2-1.0) Aspartate Amino Transferase (AST) 148 U/L (15-37) H Alanine Aminotransferase (ALT) 88 U/L (14-59) H Alkaline Phosphatase 97 U/L (46-116) Troponin I Quantitative < 0.017 ng/mL (0.000-0.055) Total Protein 8.6 g/dL (6.4-8.2) H Albumin 3.9 g/dL (3.4-5.0) Albumin/Globulin Ratio 0.8 (1.0-1.7) L Lipase 104 U/L (73-393) Laboratory Tests 07/23/18 10:00 Laboratory Tests 07/23/18 10:00 EKG EKG EKG obtained 05/22/19 at [address] Sherman Sinus rhythm Rate 80 No STEMI Radiology/Procedures Radiology/Procedures PROCEDURE: CT ABD PELV W/ IV CONTRST ONLY CT ABD PELV W/ IV CONTRST ONLY Indication: Right upper abdominal pain. Exposure: One or more of the following individualized dose reduction techniques were utilized for this examination: 1. Automated exposure control 2. Adjustment of the mA and/or kV according to patient size 3. Use of iterative reconstruction technique. Comparison: October 07, 2017 FINDINGS: Lung bases are clear. Hepatomegaly appears similar to prior study. Spleen unremarkable. Pancreas unremarkable. No adrenal mass. Symmetric renal enhancement. Tiny lower pole left renal calculus, nonobstructive, appears similar. Gallbladder surgically absent Aorta nonaneurysmal. No significant lymph node enlargement. Fat-containing anterior abdominal wall hernia is identified. No bowel obstruction. No evidence of acute colitis. Appendix is normal. Urinary bladder unremarkable. No pelvic mass identified. No free air or free fluid identified. Mild degenerative thoracic and lumbar spine spurring. No destructive bone process. IMPRESSION: 1. Small left nonobstructive renal calculus is similar. 2. No acute findings in the abdomen or pelvis. Electronically signed by: Chin Pickering MD (07/23/2018 12:08 PM) [facility] DICTATED and SIGNED BY: CHIN PICKERING MD DATE: 07/23/18 1200 Course & Med Decision Making Course & Med Decision Making Pertinent Labs and Imaging studies reviewed. (See chart for details) 1045: Reevaluation patient reports she has had no improvement in pain although found her to be sitting up on the ER cart talking on her cell phone. Discussed test results with WBCs normal limits. LFTs slightly elevated with AST/ALT 148/ 88 which in patient's records had been elevated in the past. With patient's ongoing pain will obtain CT abdomen and pelvis for further evaluation and provide additional dose of pain medication. 1220: Discussed test results with patient and her . WBCs NL at 8.0 no bands; UA neg. blood/ketones trace leuks with probable contamination moderate bacteria noted. Neg. UCG. EKG was obtained with pt's c/o upper abd pain and hx of smoker/HTN/obesity- no acute ST elevation/STEMI and troponin was <0.017. CT abd/pelvis with no acute findings- neg. acute colitis and appendix NL. Patient reports she is feeling much better than at time of arrival. She has had no episodes of vomiting or diarrhea while in the ER. Vital signs remained stable. At this time pt is in no distress and reports she is comfortable with home discharge. Discussed if sxs persist advised on f/u with PCP and GI for further care/eval- will provide GI referral info with discharge paperwork. Pt also advised on need for recheck of LFTs. Pt reports she has Rx for ODT zofran at home- will provide Rx for Bentyl. Education provided on s&s to return to ER for and discharge instructions were discussed. Dragon Disclaimer Dragon Disclaimer This electronic medical record was generated, in whole or in part, using a voice recognition dictation system. Departure Departure Impression: Primary Impression: Abdominal pain Additional Impressions: Nausea & vomiting Elevated LFTs Referrals: OIBNNA JON MD (PCP) JANELL BOOKER MD Patient Instructions: Abdominal Pain, Nausea and Vomiting Additional Instructions: Drink plenty of water and slowly advance diet as tolerated. Continue your prescribed Zofran ODT as directed. Follow-up with primary doctor and/or Gastrointestinal (GI) doctor for re- evaluation and further care if symptoms persist. Scripts Dicyclomine Hcl (DICYCLOMINE HCL) 10 Mg Capsule 1 CAP PO PRN Q6HRS PRN for PAIN, #12 CAP 0 Refills Prov: MARIVEL MORSE APRN 07/23/18 Problem Qualifiers MARIVEL MORSE APRN Jul 23, 2018 11:01
[2018-07-23] MEDS ORDERED: CONTRAST GIVEN. MC PRN (11:15)
[2018-07-23] MEDS ORDERED: IOHEXOL 300 MG/ML 100ML VIAL. IV ONE (11:30)
--- NOTE | 2018-07-23 12:12 | RAD ---
CT ABD PELV W/ IV CONTRST ONLY Indication: Right upper abdominal pain. Exposure: One or more of the following individualized dose reduction techniques were utilized for this examination: 1. Automated exposure control 2. Adjustment of the mA and/or kV according to patient size 3. Use of iterative reconstruction technique. Comparison: October 07, 2017 FINDINGS: Lung bases are clear. Hepatomegaly appears similar to prior study. Spleen unremarkable. Pancreas unremarkable. No adrenal mass. Symmetric renal enhancement. Tiny lower pole left renal calculus, nonobstructive, appears similar. Gallbladder surgically absent Aorta nonaneurysmal. No significant lymph node enlargement. Fat-containing anterior abdominal wall hernia is identified. No bowel obstruction. No evidence of acute colitis. Appendix is normal. Urinary bladder unremarkable. No pelvic mass identified. No free air or free fluid identified. Mild degenerative thoracic and lumbar spine spurring. No destructive bone process. IMPRESSION: 1. Small left nonobstructive renal calculus is similar. 2. No acute findings in the abdomen or pelvis. Electronically signed by: Chin Pickering MD (07/23/2018 12:08 PM) [facility]
[2018-07-23] MEDS ORDERED: DICY10CA3 PO (12:30)
[2018-07-23 13:00] VITALS: BP 118/58
--- NOTE | 2018-07-25 14:24 | EKG ---
[facility] [address] [place] [address] Test Date: 2018-07-23 Test Time: 10:11:14 Pat Name: YOLANDA CARVAJAL Department: Room: Gender: F Museum Guide: NADEEM : 1985 Requested By: MARIVEL MORSE Order Number: [id number] Reading MD: Rigo Quinonez MD Measurements Intervals [place] Rate: 80 P: 45 [place]: 146 QRS: 41 QRSD: 80 T: 9 QT: 392 QTc: 456 Interpretive Statements SINUS RHYTHM Electronically Signed On 07-28-2018 9:41:23 [employer] by Rigo Quinonez MD
== END 2018-07-23 13:12 | disposition home or self-care (01) ==
LOC: ER 09:38
DX: R10.11 Right upper quadrant pain (principal); R11.2 Nausea with vomiting, unspecified; R19.7 Diarrhea, unspecified; R30.0 Dysuria; R79.89 Other specified abnormal findings of blood chemistry; F41.9 Anxiety disorder, unspecified; F32.9 Major depressive disorder, single episode, unspecified; K21.9 Gastro-esophageal reflux disease without esophagitis; I10 Essential (primary) hypertension; F17.200 Nicotine dependence, unspecified, uncomplicated; E66.9 Obesity, unspecified; Z68.39 Body mass index [BMI] 39.0-39.9, adult; Z90.49 Acquired absence of other specified parts of digestive tract; Z98.51 Tubal ligation status
CPT/HCPCS: 36415; 74177; 80053; 81001; 81025; 83690; 84484; 85025; 87086; 93005; 96361; 96372; 96374; 96375; 96376; 99284; J0500; J2405; J3010; J7030

== ENCOUNTER 2018-12-09 05:02 | Emergency (ER) | payer OTHER ==
[~2018-12-09] VITALS: Ht 172.7 cm; Wt 120.2 kg
[~2018-12-09 05:02] MED LIST changes: +DICY10CA3 PO
[2018-12-09 05:13] VITALS: BP 146/93
[2018-12-09] MEDS ORDERED: METOCLOPRAMIDE HCL 10 MG/2 ML VIAL. IV ONE (05:45)
[2018-12-09] MEDS ORDERED: KETOROLAC 15 MG/ML VIAL. IV ONE (05:45)
[2018-12-09] MEDS ORDERED: IV NORMAL SALINE 1000ML BAG 1,000 ML IV ONE (05:45)
--- NOTE | 2018-12-09 05:47 | PHYS DOC ---
Past Medical History Past Medical History: Anxiety, Depression, GERD, Hypertension, Other Additional Past Medical Histor: Hemorrhoids,NEUROPATHY,CHRONIC LEFT FOOT PAIN, CRPS,obesity, INSOMNIA (ESTRELLITA FOWLER DO) Past Surgical History: Cholecystectomy, Tubal ligation (ESTRELLITA FOWLER DO) Alcohol Use: Occasionally Drug Use: Marijuana (ESTRELLITA FOWLER DO) Adult General Chief Complaint Chief Complaint: FLANK PAIN HPI HPI Patient is a 33 year old female who presents with sharp, constant, 9/10 flank and back pain on the right side that began suddenly yesterday at about 4pm. The patient states the pain began after she finished her work day in which she exerted herself a lot. The pain is worse when lying flat and better with compression. She has not taken any medication for the pain yet. She denies ever having this type of pain before. She endorses increased thirst and dehydration for the past 3 days. She denies any fever, chills, nausea, vomiting, or di arrhea. Reports some constipation x 1 day. She also reports decreased urinary urgency leading to retention and intermittent overflow. (ESTRELLITA FOWLER DO) Review of Systems Review of Systems Constitutional: Denies fever or chills [] HENT: Denies nasal congestion or sore throat [] Respiratory: Endorses cough but denies shortness of breath [] Cardiovascular: Denies any chest pain or palpitations. GI: Reports right flank pain. No nausea or vomiting. : reports retention and occasional overflow symptoms. no hematuria. Musculoskeletal: Reports right-sided back pain. Denies joint pain. [] Integument: Denies rash or skin lesions [] Neurologic: Denies headache, focal weakness or sensory changes [] Complete systems were reviewed and found to be within normal limits, except as documented in this note. (ESTRELLITA FOWLER DO) Current Medications Current Medications Current Medications Medications (Trade) Dose Ordered Sig/Tanja Start Time Stop Time Status Last Admin Dose Admin Fentanyl Citrate (Fentanyl 2ml Vial) 50 mcg 1X ONCE 12/09/18 06:15 12/09/18 06:16 DC 12/09/18 06:15 50 MCG Ketorolac Tromethamine (Toradol 15mg Vial) 15 mg 1X ONCE 12/09/18 05:45 12/09/18 05:46 DC 12/09/18 05:45 15 MG Metoclopramide HCl (Reglan Vial) 10 mg 1X ONCE 12/09/18 05:45 12/09/18 05:46 DC 12/09/18 05:45 10 MG Sodium Chloride 1,000 ml @ 1,000 mls/hr 1X ONCE 12/09/18 05:45 12/09/18 06:44 DC 12/09/18 05:45 1,000 MLS/HR (HANNAH PECK DO) Allergies Allergies Allergies Coded Allergies Type Severity Reaction Last Updated Verified No Known Drug Allergies 10/08/17 No (HANNAH PECK DO) Physical Exam Physical Exam Constitutional: Moderate distress, non-toxic appearance. [] Eyes: PERRL, conjunctiva normal, no discharge. [] Cardiovascular:Heart rate regular rhythm, no murmur [] Lungs & Thorax: Bilateral breath sounds clear to auscultation [] Abdomen: Bowel sounds normal, soft, no tenderness, no masses, no pulsatile masses. [] Skin: Warm, dry, no erythema, no rash. [] Back: Right CVA tenderness. [] Extremities: No tenderness, no cyanosis, no clubbing, ROM intact, no edema. [] Neurologic: Alert and oriented X 3, normal motor function, normal sensory function, no focal deficits noted. [] Psychologic: Affect normal, judgement normal, mood normal. [] (ESTRELLITA FOWLER DO) Current Patient Data Vital Signs Vital Signs Date Time Temp Pulse Resp B/P (MAP) Pulse Ox O2 Delivery O2 Flow Rate FiO2 12/09/18 06:15 Room Air 12/09/18 05:13 97.8 117 18 146/93 (110) 97 97.8 (HANNAH PECK DO) Lab Values Laboratory Tests Test 12/09/18 05:10 12/09/18 05:35 Urine Collection Type Unknown Urine Color Yellow Urine Clarity Clear Urine pH 6.0 Urine Specific [place] 1.025 Urine Protein 100 mg/dL (NEG-TRACE) Urine Glucose (UA) Negative mg/dL (NEG) Urine Ketones (Stick) Negative mg/dL (NEG) Urine Blood Negative (NEG) Urine Nitrite Negative (NEG) Urine Bilirubin Negative (NEG) Urine Urobilinogen Dipstick 1.0 mg/dL (0.2 mg/dL) Urine Leukocyte Esterase Negative (NEG) Urine RBC Occ /HPF (0-2) Urine WBC Occ /HPF (0-4) Urine Squamous Epithelial Cells Mod /LPF Urine Bacteria Few /HPF (0-FEW) Urine Mucus Mod /LPF White Blood Count 14.3 x10^3/uL (4.0-11.0) H Red Blood Count 4.64 x10^6/uL (3.50-5.40) Hemoglobin 13.6 g/dL (12.0-15.5) Hematocrit 40.4 % (36.0-47.0) Mean Corpuscular Volume 87 fL (79-100) Mean Corpuscular Hemoglobin 29 pg (25-35) Mean Corpuscular Hemoglobin Concent 34 g/dL (31-37) Red Cell Distribution Width 14.1 % (11.5-14.5) Platelet Count 447 x10^3/uL (140-400) H Neutrophils (%) (Auto) 61 % (31-73) Lymphocytes (%) (Auto) 29 % (24-48) Monocytes (%) (Auto) 8 % (0-9) Eosinophils (%) (Auto) 2 % (0-3) Basophils (%) (Auto) 0 % (0-3) Neutrophils # (Auto) 8.7 x10^3uL (1.8-7.7) H Lymphocytes # (Auto) 4.2 x10^3/uL (1.0-4.8) Monocytes # (Auto) 1.1 x10^3/uL (0.0-1.1) Eosinophils # (Auto) 0.3 x10^3/uL (0.0-0.7) Basophils # (Auto) 0.0 x10^3/uL (0.0-0.2) Sodium Level 141 mmol/L (136-145) Potassium Level 3.5 mmol/L (3.5-5.1) Chloride Level 104 mmol/L (98-107) Carbon Dioxide Level 26 mmol/L (21-32) Anion Gap 11 (6-14) Blood Urea Nitrogen 12 mg/dL (7-20) Creatinine 0.8 mg/dL (0.6-1.0) Estimated GFR (Cockcroft-Gault) 100.0 BUN/Creatinine Ratio 15 (6-20) Glucose Level 128 mg/dL (70-99) H Calcium Level 9.4 mg/dL (8.5-10.1) Total Bilirubin 0.4 mg/dL (0.2-1.0) Aspartate Amino Transferase (AST) 50 U/L (15-37) H Alanine Aminotransferase (ALT) 43 U/L (14-59) Alkaline Phosphatase 92 U/L (46-116) Total Protein 8.3 g/dL (6.4-8.2) H Albumin 3.7 g/dL (3.4-5.0) Albumin/Globulin Ratio 0.8 (1.0-1.7) L Lipase 106 U/L (73-393) Laboratory Tests 12/09/18 05:35 Laboratory Tests 12/09/18 05:35 (HANNAH PECK DO) Lab Values Laboratory Tests Test 12/09/18 05:10 12/09/18 05:35 Urine Collection Type Unknown Urine Color Yellow Urine Clarity Clear Urine pH 6.0 Urine Specific [place] 1.025 Urine Protein 100 mg/dL (NEG-TRACE) Urine Glucose (UA) Negative mg/dL (NEG) Urine Ketones (Stick) Negative mg/dL (NEG) Urine Blood Negative (NEG) Urine Nitrite Negative (NEG) Urine Bilirubin Negative (NEG) Urine Urobilinogen Dipstick 1.0 mg/dL (0.2 mg/dL) Urine Leukocyte Esterase Negative (NEG) Urine RBC Occ /HPF (0-2) Urine WBC Occ /HPF (0-4) Urine Squamous Epithelial Cells Mod /LPF Urine Bacteria Few /HPF (0-FEW) Urine Mucus Mod /LPF White Blood Count 14.3 x10^3/uL (4.0-11.0) H Red Blood Count 4.64 x10^6/uL (3.50-5.40) Hemoglobin 13.6 g/dL (12.0-15.5) Hematocrit 40.4 % (36.0-47.0) Mean Corpuscular Volume 87 fL (79-100) Mean Corpuscular Hemoglobin 29 pg (25-35) Mean Corpuscular Hemoglobin Concent 34 g/dL (31-37) Red Cell Distribution Width 14.1 % (11.5-14.5) Platelet Count 447 x10^3/uL (140-400) H Neutrophils (%) (Auto) 61 % (31-73) Lymphocytes (%) (Auto) 29 % (24-48) Monocytes (%) (Auto) 8 % (0-9) Eosinophils (%) (Auto) 2 % (0-3) Basophils (%) (Auto) 0 % (0-3) Neutrophils # (Auto) 8.7 x10^3uL (1.8-7.7) H Lymphocytes # (Auto) 4.2 x10^3/uL (1.0-4.8) Monocytes # (Auto) 1.1 x10^3/uL (0.0-1.1) Eosinophils # (Auto) 0.3 x10^3/uL (0.0-0.7) Basophils # (Auto) 0.0 x10^3/uL (0.0-0.2) Sodium Level 141 mmol/L (136-145) Potassium Level 3.5 mmol/L (3.5-5.1) Chloride Level 104 mmol/L (98-107) Carbon Dioxide Level 26 mmol/L (21-32) Anion Gap 11 (6-14) Blood Urea Nitrogen 12 mg/dL (7-20) Creatinine 0.8 mg/dL (0.6-1.0) Estimated GFR (Cockcroft-Gault) 100.0 BUN/Creatinine Ratio 15 (6-20) Glucose Level 128 mg/dL (70-99) H Calcium Level 9.4 mg/dL (8.5-10.1) Total Bilirubin 0.4 mg/dL (0.2-1.0) Aspartate Amino Transferase (AST) 50 U/L (15-37) H Alanine Aminotransferase (ALT) 43 U/L (14-59) Alkaline Phosphatase 92 U/L (46-116) Total Protein 8.3 g/dL (6.4-8.2) H Albumin 3.7 g/dL (3.4-5.0) Albumin/Globulin Ratio 0.8 (1.0-1.7) L Lipase 106 U/L (73-393) Laboratory Tests 12/09/18 05:35 Laboratory Tests 12/09/18 05:35 (ESTRELLITA FOWLER DO) EKG EKG [] (ESTRELLITA FOWLER DO) Radiology/Procedures Radiology/Procedures [] (ESTRELLITA FOWLER DO) Radiology/Procedures CT ABD/Pelvis IMPRESSION: 1. No evidence for obstructive uropathy. 3 mm nonobstructing calculus is identified in the inferior pole the left kidney. 2. Appendix is normal in appearance. Electronically signed by: Britney Rosario MD (12/09/2018 6:51 AM) [facility] (HANNAH PECK DO) Course & Med Decision Making Course & Med Decision Making Ms. Snider is a 33 yo female who presents with intense flank/back pain on the right side. CT scan ordered to rule out kidney stone. Urinalysis with culture ordered without signs of infection. Pain addressed. IVF hydration given. Labs obtained and pending. CT abd/pelvis pending. Sign out given to Dr. Peck for further evaluation and treatment. Discussed current findings and plan with patient and family, who acknowledge understanding and agreement. (ESTRELLITA FOWLER DO) Course & Med Decision Making 0713: Transfer care from Dr. Fowler at approximately 6 AM this morning. 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 Patient with reproducible pain on the paraspinal muscles of the T- L spine. Symtoms are aggravated by movement particularly use of RUE and rotation. No midline spinal tenderness. No acute findings on CT abdomen and pelvis. Urine with no infection. Will provide one dose of Valium here as patient doesn't be having some active spasms. Discussed continue supportive care including maximally Visine tant-uqe-[id number] medications. We'll provide prescription for Flexeril. ER return precautions given. Patient verbalized understanding. All questions answered. (HANNAH PECK DO) Dragon Disclaimer Dragon Disclaimer This electronic medical record was generated, in whole or in part, using a voice recognition dictation system. (ESTRELLITA FOWLER DO) Departure Departure Impression: Primary Impression: Flank pain Additional Impressions: Muscle spasm Back pain Disposition: HOME, SELF-CARE Condition: IMPROVED Referrals: OBINNA JON MD (PCP) Patient Instructions: Back Pain, Adult, Muscle Cramps, [id number] Additional Instructions: Thank you for coming to [facility]. Please read the attached handouts. Please follow-up with your primary care physician. 800 mg 3 times a day with food for pain. Alternate this with acetaminophen 1000 mg every 6 hours. Do not exceed 4000 mg of acetaminophen in a 24-hour period. Take the prescribed medication for uncontrolled pain. Please try to rest. Apply heat or cooled compresses for comfort. Return to the ER if your symptoms worsen or you have any other concerns. Scripts Cyclobenzaprine Hcl (CYCLOBENZAPRINE HCL) 10 Mg Tablet 1 TAB PO BID PRN for MUSCLE SPASMS, #12 TAB Prov: HANNAH PECK DO 12/09/18 Problem Qualifiers Additional Impressions: Back pain Back pain location: thoracic back pain Chronicity: acute Back pain laterality: right Qualified Codes: M54.6 - Pain in thoracic spine ESTRELLITA FOWLER DO Dec 09, 2018 05:46 HANNAH PECK DO Dec 09, 2018 07:16
[2018-12-09 05:49] LABS: BILIRUBIN,URINE NEGATIVE (NEG); CLARITY,URINE CLEAR; COLOR,URINE YELLOW; NITRITE,URINE NEGATIVE (NEG); PROTEIN,URINE 100 mg/dL (NEG-TRACE)
[2018-12-09 05:49] LABS: BASO % 0 % (0-3); EOS # 0.3 x10^3/uL (0.0-0.7); EOS % 2 % (0-3); HEMATOCRIT 40.4 % (36.0-47.0); HEMOGLOBIN 13.6 g/dL (12.0-15.5); LYMPH # 4.2 x10^3/uL (1.0-4.8); LYMPH % 29 % (24-48); MEAN CORPUSCULAR HEMOGLOBIN 29 pg (25-35); MEAN CORPUSCULAR HGB CONC 34 g/dL (31-37); MEAN CORPUSCULAR VOLUME 87 fL (79-100); MONO # 1.1 x10^3/uL (0.0-1.1); MONO % 8 % (0-9); NEUT # 8.7 x10^3uL (1.8-7.7); NEUT % 61 % (31-73); PLATELET COUNT 447 x10^3/uL (140-400); RED BLOOD COUNT 4.64 x10^6/uL (3.50-5.40); RED CELL DISTRIBUTION WIDTH 14.1 % (11.5-14.5); WHITE BLOOD COUNT 14.3 x10^3/uL (4.0-11.0)
[2018-12-09 06:01] LABS: BACTERIA,URINE FEW /HPF (0-FEW); RBC,URINE OCC /HPF (0-2); SQUAMOUS EPITHELIAL CELL,UR MOD /LPF; WBC,URINE OCC /HPF (0-4)
[2018-12-09 06:03] LABS: CALCIUM 9.4 mg/dL (8.5-10.1); CREATININE 0.8 mg/dL (0.6-1.0); POTASSIUM 3.5 mmol/L (3.5-5.1)
[2018-12-09 06:09] LABS: ALBUMIN 3.7 g/dL (3.4-5.0); ALBUMIN/GLOBULIN RATIO 0.8 (1.0-1.7); TOTAL BILIRUBIN 0.4 mg/dL (0.2-1.0); TOTAL PROTEIN 8.3 g/dL (6.4-8.2)
[2018-12-09] MEDS ORDERED: fentaNYL PF VIAL 100 MCG/2 ML VIAL IV ONE (06:15)
--- NOTE | 2018-12-09 06:54 | RAD ---
PQRS Compliance Statement: One or more of the following individualized dose reduction techniques were utilized for this examination: 1. Automated exposure control 2. Adjustment of the mA and/or kV according to patient size 3. Use of iterative reconstruction technique CT abdomen/pelvis without contrast 12/09/2018 6:21 AM INDICATION: Right flank pain. COMPARISON: CT abdomen/pelvis July 23, 2018 TECHNIQUE: Multiple axial CT images of the abdomen and pelvis were obtained without intravenous contrast. Coronal and sagittal reformats are provided. FINDINGS: There is subsegmental atelectasis within the lingula and right lower lobe. Heart size is within normal limits. Trace pericardial fluid. Evaluation of the solid abdominal viscera is limited by lack of intravenous contrast. There is a midline ventral hernia measuring 10 mm at the fascial defect. Liver, spleen, bilateral adrenal glands and pancreas are normal in appearance. Gallbladder surgically absent. Abdominal aorta is normal in course and caliber. There is a retroaortic left renal vein. No pathologically enlarged lymph nodes in abdomen or pelvis. No free fluid or free intraperitoneal air. Small and large bowel are normal in caliber. There is no evidence for bowel obstruction. There are no pericolonic inflammatory changes. A normal, nondilated appendix is visualized without adjacent inflammatory changes. There is a 3 mm nonobstructing calculus in inferior pole left kidney. No calculi are identified in the right kidney. There is no hydronephrosis. No calculi are identified within the ureters or urinary bladder. Bladder is decompressed, limiting evaluation. No suspicious pelvic masses are identified. Follicular changes are identified the adnexa bilaterally. IMPRESSION: 1. No evidence for obstructive uropathy. 3 mm nonobstructing calculus is identified in the inferior pole the left kidney. 2. Appendix is normal in appearance. Electronically signed by: Britney Rosario MD (12/09/2018 6:51 AM) [facility]
[2018-12-09] MEDS ORDERED: CYCL10TA2 PO (07:12)
[2018-12-09] MEDS ORDERED: diazePAM 5 MG TABLET PO ONE (07:15)
== END 2018-12-09 07:35 | disposition home or self-care (01) ==
LOC: ER 05:02
DX: R10.9 Unspecified abdominal pain (principal); M54.6 Pain in thoracic spine; M62.830 Muscle spasm of back; E86.0 Dehydration; K21.9 Gastro-esophageal reflux disease without esophagitis; I10 Essential (primary) hypertension; E66.9 Obesity, unspecified; Z68.41 Body mass index [BMI] 40.0-44.9, adult; Z98.51 Tubal ligation status; Z90.49 Acquired absence of other specified parts of digestive tract
CPT/HCPCS: 36415; 74176; 80053; 81001; 83690; 85025; 96361; 96374; 96375; 99285; J1885; J2765; J3010; J7030

== ENCOUNTER 2019-02-27 13:47 | Emergency (ER) | payer OTHER ==
[~2019-02-27] VITALS: Ht 170.2 cm; Wt 115.7 kg
[~2019-02-27 13:47] MED LIST changes: -TIZA4TAB PO; +TIZA4TAB2 PO
[2019-02-27 15:19] VITALS: BP 169/81
[2019-02-27] MEDS ORDERED: HYDR25SU18 RC (15:38)
--- NOTE | 2019-02-27 15:39 | PHYS DOC ---
Past Medical History Past Medical History: Asthma, Hypertension Additional Past Medical Histor: Hemorrhoids,NEUROPATHY,CHRONIC LEFT FOOT PAIN, CRPS,obesity, INSOMNIA Past Surgical History: Cholecystectomy, Tubal ligation Alcohol Use: Occasionally Drug Use: Marijuana Adult General Chief Complaint Chief Complaint: HEMORRHOIDS [facility] HPI Patient is a 33 year old female with a history of constipation and hemorrhoids presents to the ED complaining of hemorrhoids �2 weeks ago. Patient states they have been getting increasingly worse. States she's tried Preparation H without improvement. States she has been constipated. Has not had a stool in a couple days. Denies abdominal pain, bloody stools, chest pain, shortness of breath, dizziness, weakness, headache, nausea/vomiting or fever. Review of Systems Review of Systems Constitutional: Denies fever or chills [] Eyes: Denies change in visual acuity, redness, or eye pain [] HENT: Denies nasal congestion or sore throat [] Respiratory: Denies cough or shortness of breath [] Cardiovascular: No additional information not addressed in HPI [] GI: Complains of hemorrhoids. Denies abdominal pain, nausea, vomiting, bloody stools or diarrhea [] : Denies dysuria or hematuria [] Musculoskeletal: Denies back pain or joint pain [] Integument: Denies rash or skin lesions [] Neurologic: Denies headache, focal weakness or sensory changes [] All other systems were reviewed and found to be within normal limits, except as documented in this note. Allergies Allergies Allergies Coded Allergies Type Severity Reaction Last Updated Verified No Known Drug Allergies 10/08/17 No Physical Exam Physical Exam Constitutional: Well developed, well nourished, no acute distress, non-toxic appearance. [] HENT: Normocephalic, atraumatic Eyes: PERRLA, EOMI, conjunctiva normal, no discharge. [] Neck: Normal range of motion, no tenderness, supple, no stridor. [] Cardiovascular:Heart rate regular rhythm, no murmur [] Lungs & Thorax: Bilateral breath sounds clear to auscultation [] Abdomen: Bowel sounds normal, soft, no tenderness, no masses, no pulsatile masses. [] external hemorroids. No thrombosis. Skin: Warm, dry, no erythema, no rash. [] Back: No tenderness, no CVA tenderness. [] Extremities: No tenderness, no cyanosis, no clubbing, ROM intact, no edema. [] Neurologic: Alert and oriented X 3, normal motor function, normal sensory function, no focal deficits noted. [] Psychologic: Affect normal, judgement normal, mood normal. [] EKG EKG [] Radiology/Procedures Radiology/Procedures [] Course & Med Decision Making Course & Med Decision Making Pertinent Labs and Imaging studies reviewed. (See chart for details) []Will prescribe Anusol suppositories outpatient. Discussed symptomatic treatment and treatment for constipation. Patient is to follow-up with general surgery this week. Provided contact information/education. Discussed reasons to return to the ED. Patient understands and agrees with plan. Dragon Disclaimer Dragon Disclaimer This electronic medical record was generated, in whole or in part, using a voice recognition dictation system. Departure Departure Impression: Primary Impression: Hemorrhoids Disposition: 01 HOME, SELF-CARE Condition: IMPROVED Referrals: OBINNA JON MD (PCP) JANELL CHAPA MD Patient Instructions: Hemorrhoids Scripts Hydrocortisone Acetate (ANUSOL-HC) 25 Mg Supp.rect 1 SUPP RC BID, #28 SUPP Prov: ROSARIO BERNAL 02/27/19 ROSARIO BERNAL Feb 27, 2019 15:39
== END 2019-02-27 15:47 | disposition home or self-care (01) ==
LOC: ER 13:47
DX: K64.4 Residual hemorrhoidal skin tags (principal); I10 Essential (primary) hypertension; J45.909 Unspecified asthma, uncomplicated; G89.29 Other chronic pain; Z90.49 Acquired absence of other specified parts of digestive tract; Z98.51 Tubal ligation status; E66.9 Obesity, unspecified; Z68.39 Body mass index [BMI] 39.0-39.9, adult
CPT/HCPCS: 99282

== ENCOUNTER 2020-02-26 12:37 | Emergency (ER) | payer OTHER ==
[~2020-02-26] VITALS: Ht 170.2 cm; Wt 109.0 kg
[~2020-02-26 12:37] MED LIST changes: +HYDR25SU18 RC; -OXYC-411 PO; +OXYC1TAB20 PO
[2020-02-26 12:45] VITALS: BP 177/88
[2020-02-26 13:20] LABS: BASO % 0 % (0-3); EOS # 0.3 x10^3/uL (0.0-0.7); EOS % 3 % (0-3); HEMOGLOBIN 13.9 g/dL (12.0-15.5); LYMPH # 3.3 x10^3/uL (1.0-4.8); LYMPH % 26 % (24-48); MEAN CORPUSCULAR HEMOGLOBIN 31 pg (25-35); MEAN CORPUSCULAR HGB CONC 34 g/dL (31-37); MEAN CORPUSCULAR VOLUME 91 fL (79-100); MONO # 1.1 x10^3/uL (0.0-1.1); MONO % 8 % (0-9); NEUT # 8.1 x10^3/uL (1.8-7.7); NEUT % 63 % (31-73); PLATELET COUNT 353 x10^3/uL (140-400); RED BLOOD COUNT 4.52 x10^6/uL (3.50-5.40); RED CELL DISTRIBUTION WIDTH 13.9 % (11.5-14.5); WHITE BLOOD COUNT 12.8 x10^3/uL (4.0-11.0)
[2020-02-26 13:34] LABS: CALCIUM 9.1 mg/dL (8.5-10.1); CREATININE 1.2 mg/dL (0.6-1.0); GFR 62.2
--- NOTE | 2020-02-26 13:39 | RAD ---
EXAM: CT Head without IV contrast INDICATION: Reason: severe headache / Spl. Instructions: / History: TECHNIQUE: Multi-detector row CT images were obtained of the head without the use of IV contrast. All CT scans performed at this facility utilize dose optimization techniques as appropriate to the exam, including the following: Automated exposure control and adjustment of the mA and/or KV according to patient size (this includes techniques or standardized protocols for targeted exams where dose is indication/reason for exam). COMPARISON: None FINDINGS: BRAIN PARENCHYMA: No evidence of acute intraparenchymal hemorrhage or infarct. No abnormal parenchymal density or mass. VENTRICLES & EXTRA-AXIAL SPACES: Ventricles are within normal limits. Basilar cisterns are patent. No pathologic extra-axial fluid collection or mass. ORBITS: Orbital contents are unremarkable. SINUSES: Right maxillary antral partially imaged mucous retention cyst or polyp. Otherwise paranasal sinuses and mastoid air cells are clear. OSSEOUS & SOFT TISSUES: Calvarium and skull base are intact. IMPRESSION: Unremarkable CT of the head without contrast. Electronically signed by: Idalia Andersen MD (02/26/2020 1:36 PM) [id number]
[2020-02-26 13:40] LABS: ALBUMIN 3.6 g/dL (3.4-5.0); TOTAL BILIRUBIN 0.4 mg/dL (0.2-1.0); TOTAL PROTEIN 7.1 g/dL (6.4-8.2)
--- NOTE | 2020-02-26 14:20 | PHYS DOC ---
Past Medical History Past Medical History: Asthma, Depression, Hypertension Additional Past Medical Histor: Hemorrhoids,NEUROPATHY,CHRONIC LEFT FOOT PAIN, CRPS,obesity, INSOMNIA Past Surgical History: Cholecystectomy, Tubal ligation Smoking Status: Current Every Day Smoker Alcohol Use: Occasionally Drug Use: Marijuana General Adult EDM: Chief Complaint: HEADACHE HPI: HPI: Patient is a 34 year old AA female who presents emergency department with complaints of a headache that she describes as pressure and a tight sensation in the back of her head that is now all over. She reports that the pain began at approximately 0500 this morning. She reports photophobia, nausea, and dizziness with her symptoms. She reports that the pain radiates from her head down her neck into her left shoulder. She denies any numbness, tingling, or weakness. She denies vomiting, abdominal pain, or vision changes. She states she has a history of high blood pressure. She currently rates the pain a 10 out of 10 on the pain scale she denies any alleviating factors. Patient denies a history of migraines. Review of Systems: Review of Systems: Constitutional: Denies fever or chills. [] Eyes: Denies change in visual acuity; see HPI. [] HENT: Denies nasal congestion or sore throat. [] Respiratory: Denies cough or shortness of breath. [] Cardiovascular: Denies palpitations, or edema; states that the pain is radiated to her left chest at times. GI: Denies abdominal pain, vomiting, or diarrhea; see HPI Musculoskeletal: Denies back pain or joint pain. [] Integument: Denies rash. [] Neurologic: Denies focal weakness or sensory changes; see HPI Psychiatric: Denies depression or anxiety. [] Complete ROS is negative unless otherwise stated in the HPI. Heart Score: Risk Factors: Risk Factors: DM, Current or recent (<one month) smoker, HTN, HLP, family history of CAD, obesity. Risk Scores: Score 0 - 3: 2.5% MACE over next 6 weeks - Discharge Home Score 4 - 6: 20.3% MACE over next 6 weeks - Admit for Clinical Observation Score 7 - 10: 72.7% MACE over next 6 weeks - Early Invasive Strategies Allergies: Allergies: Allergies Coded Allergies Type Severity Reaction Last Updated Verified No Known Drug Allergies 10/08/17 No Physical Exam: PE: Constitutional: Well developed, well nourished, non-toxic appearance, obese, appears uncomfortable HENT: Normocephalic, atraumatic, bilateral external ears normal, oropharynx moist, no oral exudates, nose normal. [] Eyes: PERRLA, EOMI, conjunctiva normal, no discharge, photosensitive. [] Neck: Normal range of motion, no tenderness, supple, no stridor. [] Cardiovascular:Heart rate regular rhythm, no murmur [] Lungs & Thorax: Respirations even and unlabored, no retractions, no respiratory distress Abdomen soft, no tenderness Skin: Warm, dry, no erythema, no rash. [] Back: No tenderness Extremities: No cyanosis, ROM intact Neurologic: Alert and oriented X 3, no focal deficits noted. [] Psychologic: Affect normal, judgement normal, mood normal. [] Current Patient Data: Labs: Laboratory Tests Test 02/26/20 12:57 White Blood Count 12.8 x10^3/uL (4.0-11.0) H Red Blood Count 4.52 x10^6/uL (3.50-5.40) Hemoglobin 13.9 g/dL (12.0-15.5) Hematocrit 41.0 % (36.0-47.0) Mean Corpuscular Volume 91 fL (79-100) Mean Corpuscular Hemoglobin 31 pg (25-35) Mean Corpuscular Hemoglobin Concent 34 g/dL (31-37) Red Cell Distribution Width 13.9 % (11.5-14.5) Platelet Count 353 x10^3/uL (140-400) Neutrophils (%) (Auto) 63 % (31-73) Lymphocytes (%) (Auto) 26 % (24-48) Monocytes (%) (Auto) 8 % (0-9) Eosinophils (%) (Auto) 3 % (0-3) Basophils (%) (Auto) 0 % (0-3) Neutrophils # (Auto) 8.1 x10^3/uL (1.8-7.7) H Lymphocytes # (Auto) 3.3 x10^3/uL (1.0-4.8) Monocytes # (Auto) 1.1 x10^3/uL (0.0-1.1) Eosinophils # (Auto) 0.3 x10^3/uL (0.0-0.7) Basophils # (Auto) 0.0 x10^3/uL (0.0-0.2) Sodium Level 138 mmol/L (136-145) Potassium Level 4.0 mmol/L (3.5-5.1) Chloride Level 102 mmol/L (98-107) Carbon Dioxide Level 27 mmol/L (21-32) Anion Gap 9 (6-14) Blood Urea Nitrogen 11 mg/dL (7-20) Creatinine 1.2 mg/dL (0.6-1.0) H Estimated GFR (Cockcroft-Gault) 62.2 BUN/Creatinine Ratio 9 (6-20) Glucose Level 81 mg/dL (70-99) Calcium Level 9.1 mg/dL (8.5-10.1) Total Bilirubin 0.4 mg/dL (0.2-1.0) Aspartate Amino Transferase (AST) 61 U/L (15-37) H Alanine Aminotransferase (ALT) 65 U/L (14-59) H Alkaline Phosphatase 81 U/L (46-116) Creatine Kinase 253 U/L (26-192) H Creatine Kinase MB (Mass) 3.6 ng/mL (0.0-3.6) Creatine Kinase MB Relative Index 1.4 % (0-4) Troponin I Quantitative < 0.017 ng/mL (0.000-0.055) Total Protein 7.1 g/dL (6.4-8.2) Albumin 3.6 g/dL (3.4-5.0) Albumin/Globulin Ratio 1.0 (1.0-1.7) Laboratory Tests 02/26/20 12:57 Laboratory Tests 02/26/20 12:57 Vital Signs: Vital Signs Date Time Temp Pulse Resp B/P (MAP) Pulse Ox O2 Delivery O2 Flow Rate FiO2 02/26/20 12:45 98.8 90 10 177/88 (117) 98 Room Air 98.8 EKG: EKG: [] Radiology/Procedures: Radiology/Procedures: PROCEDURE: CT HEAD WO CONTRAST EXAM: CT Head without IV contrast INDICATION: Reason: severe headache / Spl. Instructions: / History: TECHNIQUE: Multi-detector row CT images were obtained of the head without the use of IV contrast. All CT scans performed at this facility utilize dose optimization techniques as appropriate to the exam, including the following: Automated exposure control and adjustment of the mA and/or KV according to patient size (this includes techniques or standardized protocols for targeted exams where dose is indication/reason for exam). COMPARISON: None FINDINGS: BRAIN PARENCHYMA: No evidence of acute intraparenchymal hemorrhage or infarct. No abnormal parenchymal density or mass. VENTRICLES & EXTRA-AXIAL SPACES: Ventricles are within normal limits. Basilar cisterns are patent. No pathologic extra-axial fluid collection or mass. ORBITS: Orbital contents are unremarkable. SINUSES: Right maxillary antral partially imaged mucous retention cyst or polyp. Otherwise paranasal sinuses and mastoid air cells are clear. OSSEOUS & SOFT TISSUES: Calvarium and skull base are intact. IMPRESSION: Unremarkable CT of the head without contrast. Electronically signed by: Idalia Andresen MD (02/26/2020 1:36 PM) [id number] [] Course & Med Decision Making: Course & Med Decision Making Pertinent Labs and Imaging studies reviewed. (See chart for details) [id number]-patient signed out AGAINST MEDICAL ADVICE, nurse informed this provider after the patient had already left [] Dragon Disclaimer: Drag[employer] Disclaimer: This electronic medical record was generated, in whole or in part, using a voice recognition dictation system. Departure Departure Impression: Primary Impression: Left against medical advice Disposition: 07 AGAINST MEDICAL ADVICE Condition: STABLE Referrals: OBINNA JON MD (PCP) Justicifation of Admission Dx: Justifications for Admission: Justification of Admission Dx: N/A DARLEEN LAY APRN Feb 26, 2020 14:20
[2020-02-26] MEDS ORDERED: diphenhydrAMINE 50 MG/ML VIAL IVP ONE (14:30)
[2020-02-26] MEDS ORDERED: PROCHLORPERAZINE 10 MG/2 ML VIAL. IV ONE (14:30)
[2020-02-26] MEDS ORDERED: IV NORMAL SALINE 1000ML BAG 1,000 ML IV ONE (14:30)
[2020-02-26] MEDS ORDERED: KETOROLAC 15 MG/ML VIAL. IVP ONE (14:30)
--- NOTE | 2020-02-26 16:14 | EKG ---
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
== END 2020-02-26 14:45 | disposition left against medical advice (07) ==
LOC: ER 12:37
DX: R51 Headache (principal); R20.2 Paresthesia of skin; R42 Dizziness and giddiness; R11.0 Nausea; J45.909 Unspecified asthma, uncomplicated; F32.9 Major depressive disorder, single episode, unspecified; I10 Essential (primary) hypertension; F17.200 Nicotine dependence, unspecified, uncomplicated; F12.90 Cannabis use, unspecified, uncomplicated; G89.29 Other chronic pain; E66.9 Obesity, unspecified; Z68.37 Body mass index [BMI] 37.0-37.9, adult; Z90.49 Acquired absence of other specified parts of digestive tract; Z98.51 Tubal ligation status
CPT/HCPCS: 36415; 70450; 80053; 82553; 84484; 85025; 93005; 99285

== ENCOUNTER → 2020-04-17 | Outpatient (CLI) | payer OTHER ==
--- NOTE | 2020-04-17 15:49 | RAD ---
EXAM: Pelvic sonogram. HISTORY: Menorrhagia. TECHNIQUE: Transabdominal and transvaginal sonographic imaging of the pelvis was performed. COMPARISON: None. FINDINGS: The uterus is retroverted and measures 8.7 x 4.9 x 4.2 cm. The endometrial stripe measures less than 1 mm in thickness. The ovaries are normal in size and demonstrate normal blood flow. There are small ovarian follicles. There is a small amount of pelvic free fluid. IMPRESSION: 1. Retroverted uterus. 2. Thin endometrial stripe. 3. Small amount of pelvic free fluid, within physiologic limits for a premenopausal female. Electronically signed by: Luci Mccracken MD (04/17/2020 3:46 PM) [id number]
== END ==
LOC: US 15:11
PROVIDERS: ATTEND Pediatrics
DX: N92.1 Excessive and frequent menstruation with irregular cycle (principal)
CPT/HCPCS: 76830; 76856